=== PATIENT | female | born 1995 | race Hispanic/Latino ===

== ENCOUNTER 2023-06-17 16:55 | Emergency (ER) | payer BC ==
--- OUTSIDE RECORDS SUMMARY | 2023-06-17 17:02 | XMS REPORT | Continuity of Care Document ---
:1995 Author Organization [facility] t Address [address] [place] [address] [address] [place] [address] Care Team Providers Name Role Phone GREGORIO CRUZ MD Primary Care Physician COLBY SINGH Attending Clinician Unavailable GREGORIO CRUZ Attending Clinician Unavailable KRYSTLE SNELL Attending Clinician Unavailable Krystle Snell MD Attending Clinician Doctor Unassigned, [place] Attending Clinician Unavailable Nurse, Jeff [facility] Attending Clinician Unavailable Fontandarlene III, AUTOMATIC DISPENSER MECHANIC, R Attending Clinician Jillian Middleton MD Attending Clinician Jewell Marc NP Attending Clinician Lab, Ang - Db Attending Clinician Unavailable IAN REESE Attending Clinician Unavailable Ian Reese MD Attending Clinician Ultrasound, Ang-Mfm Attending Clinician Unavailable Harjit Bermudez MD Attending Clinician HARJIT BERMUDEZ Attending Clinician Unavailable Nyasia Salcedo APRN Attending Clinician Jonatan DUNBAR, Sunshine [employer]ncer Attending Clinician [phone] KRYSTLE SNELL Admitting Clinician Unavailable Krystle Snell MD Admitting Clinician Payers Payer Name Policy Type Policy Number Effective Date Expiration Date Harsha montelongo [facility] [id number] 2020 00:00:00 CHOICE/CHOICE PLUS [place] [place] [id number] 2021 00:00:00 OUT OF STATE Problems Condition Condition Condition Status Onset Resolution Last Treating Co mments Source Name Details Category Date Date Treatment Clinician Date Liveborn Liveborn Disease Active 2021-11 Unive rs infant, of infant, of 0-28 [place] , [place] d[place] born in born in [facility] by vaginal by vaginal delivery delivery Admitted Admitted Disease Active 2021-11 Unive rs to labor to labor 0-27 ity of and and 00:00: [place] delivery delivery 00 [facility] Encounter Encounter Disease Active 2021-11 Uni vers for for 0-27 [place] of induction [place] 00:[place] of labor of labor 00 [facility] Elevated Elevated Disease Active 2021-11 Unive rs BP without BP without 0-27 [place] of diagnosis diagnosis 00:[place] of of 00 Medical hypertensi hypertensi Br anch on on Gestationa Gestationa Disease Active 2021-11 U nivers l l 0-27 [place] of hypertens[place], third on, third 00 [facility] trimester trimester Bran ch High-risk High-risk Disease Active 2021-11 Uni vers 0-05 ity of in third in third 00:00: [place] trimester trimester 00 [facility] 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 6-09 ity of 00:00: [place] 00 Medical Branch Obesity in Obesity in Disease Active U nivers 3-17 ity of 00:00: [place] 00 Medical Branch Encounter Encounter Disease Active Uni vers for for 3-17 ity of supervisio supervisio [place] of n of 00 Medical normal normal Branch first first in first in first trimester trimester Daytime Daytime Disease Active [facility] somnolence somnolence 6-04 He alth 00:00: 00 Allergic Allergic Disease Active [place] rhinitis rhinitis 5-27 Health 00:00: 00 Allergies, Adverse Reactions, Alerts Allergy Allergy Status Severity Reaction(s) Onset Inactive Treating Comm ents Source Name Type Date Date Clinician NO KNOWN Drug Active Univers ALLERGIE Class ity of [facility] Social History Social Habit Start Date Stop Date Quantity Comments Source ASSERTION 2021-12-16 University of 00:00:00 [facility] History SDOH University o f Alcohol Frequency [facility] edical Branch History SDMT University o f Alcohol Std Drinks [facility] History [facility] University o f Alcohol Binge [place] Medic al [place] Gender identity Universit y of [facility] Sexual orientation Univer sity [facility] Exposure to 2022-09-11 2022-09-21 Not sure University SARS-CoV-2 (event) 00:00:00 09:25:00 [facility] Alcohol intake 2022-09-21 2022-09-21 Ex-drinker [facility] 00:00:00 00:00:00 (finding) [facility] Tobacco use and 2022-06-14 2022-06-14 Smokeless Universit y of exposure 00:00:00 00:00:00 tobacco non-user [facility] dical [place] History of Social 2022-01-21 2022-01-21 Univers ity of function 00:00:00 00:00:00 [facility] Alcohol Comment 2018-12-16 2018-12-16 socially Universit y of 00:00:00 00:00:00 [facility] Sex [birth year] At [birth year] Universit y of 00:00:00 00:00:00 [facility] Smoking Status Start Date Stop Date Source Never smoked tobacco [facility] Medications Ordered Filled Start Stop Current Ordering Indication Dosage Frequency Signature Comments Components Source Medication Medication Date Date Medication? Clinician (SIG) Name Name carri 2021-11 Yes [id number] .35mg Take 1 Univers ne 0.35 mg 2-06 tablet by ity of tablet 00:00: mouth in [place] 00 the Medical morning. Branch fatoumataro 2021-11 Yes [id number] .35mg Take 1 Univers ne 0.35 mg 2-06 tablet by ity of tablet 00:00: mouth in [place] 00 the Medical morning. Branch fatoumataro 2021-11 Yes [id number] .35mg Take 1 Univers ne 0.35 mg 2-06 tablet by ity of tablet 00:00: mouth in [place] 00 the Medical morning. Branch norethindro 2021-11 Yes [id number] .35mg Take 1 Univers ne 0.35 mg 2-06 tablet by ity of tablet 00:00: mouth in [place] 00 the Medical morning. Branch 2021-11- No Take by Unive rs vit,josselyn 0-29 10-29 mouth. ity of 74/iron/fol 13:23: 00:00 [place] ic 56 :00 Medical ( Branch VITAMIN 1+1 ORAL) 2021-11- No Take by Unive rs vit,josselyn 0-29 10-29 mouth. ity of 74/iron/fol 13:23: 00:00 [place] ic 56 :00 Medical ( Branch VITAMIN 1+1 ORAL) 2021-11 Yes [id number] 1{tbl} Take 1 U nivers vitamin 0-29 tablet by ity of w/FA tablet 00:00: [place] 00 the Medical morning. Branch docusate 2021-11 Yes [id number] 200mg Take 2 Un rigoberto 100 mg 0-29 capsules ity of capsule 00:00: by mouth [place] [id number] once daily Medical as needed Branch for Constipati on. ferrous 2021-11 Yes [id number] 325mg Take 1 Uni vers sulfate 325 0-29 tablet by ity of mg (65 mg 00:00: mouth in [facility]) 00 the Medical tablet morning Branch and 1 tablet in the evening. ibuprofen 2021-11 Yes [id number] 600mg Take 1 U nivers 600 mg 0-29 tablet by ity of tablet 00:00: mouth [place] 00 every 6 Medical (six) Branch hours as needed (Pain). Take with food or milk. 2021-11 Yes [id number] 1{tbl} Take 1 U nivers vitamin 0-29 tablet by ity of w/FA tablet 00:00: [place] 00 the Medical morning. Branch docusate 2021-11 Yes [id number] 200mg Take 2 Un rigoberto 100 mg 0-29 capsules ity of capsule 00:00: by mouth [place] [id number] once daily Medical as needed Branch for Constipati on. ferrous 2021-11 Yes [id number] 325mg Take 1 Uni vers sulfate 325 0-29 tablet by ity of mg (65 mg 00:00: [place] iron) 00 the Medical tablet morning Branch and 1 tablet in the evening. ibuprofen 2021-11 Yes [id number] 600mg Take 1 U nivers 600 mg 0-29 tablet by ity of tablet 00:00: mouth [place] 00 every 6 Medical (six) Branch hours as needed (Pain). Take with food or milk. 2021-11 Yes [id number] 1{tbl} Take 1 U nivers vitamin 0-29 tablet by ity of w/FA tablet 00:00: [place] 00 the Medical morning. Branch docusate 2021-11 Yes [id number] 200mg Take 2 Un rigoberto 100 mg 0-29 capsules ity of capsule 00:00: by mouth [place] 00 once daily Medical as needed Branch for Constipati on. ferrous 2021-11 Yes [id number] 325mg Take 1 Uni vers sulfate 325 0-29 tablet by ity of mg (65 mg 00:00: [place] iron[place] 00 the Medical tablet morning Branch and 1 tablet in the evening. ibuprofen 2021-11 Yes [id number] 600mg Take 1 U nivers 600 mg 0-29 tablet by ity of tablet 00:00: mouth [place] 00 every 6 Medical (six) Branch hours as needed (Pain). Take with food or milk. 2021-11 Yes [id number] 1{tbl} Take 1 U nivers vitamin 0-29 tablet by ity of w/FA tablet 00:00: [place] 00 the Medical morning. Branch ferrous 2021-11 Yes [id number] 325mg Take 1 Uni vers sulfate 325 0-29 tablet by ity of mg (65 mg 00:00: [place] iron[place] 00 the Medical tablet morning Branch and 1 tablet in the evening. 2021-11 Yes [id number] 1{tbl} Take 1 U nivers vitamin 0-29 tablet by ity of w/FA tablet 00:00: [place] 00 the Medical morning. Branch ferrous 2021-11 Yes [id number] 325mg Take 1 Uni vers sulfate 325 0-29 tablet by ity of mg (65 mg 00:00: [place] iron[place] 00 the Medical tablet morning Branch and 1 tablet in the evening. 2021-11 Yes [id number] 1{tbl} Take 1 U nivers vitamin 0-29 tablet by ity of w/FA tablet 00:00: mouth [place] 00 the Medical morning. Branch ferrous 2021-11 Yes [id number] 325mg Take 1 Uni vers sulfate 325 0-29 tablet by ity of mg (65 mg 00:00: [place] iron[place] 00 the Medical tablet morning Branch and 1 tablet in the evening. 2021-11 Yes [id number] 1{tbl} Take 1 U nivers vitamin 0-29 tablet by ity of w/FA tablet 00:00: mouth [place] 00 the Medical morning. Branch ferrous 2021-11 Yes [id number] 325mg Take 1 Uni vers sulfate 325 0-29 tablet by ity of mg (65 mg 00:00: [place] iron[place] 00 the Medical tablet morning Branch and 1 tablet in the evening. 2021-11 Yes [id number] 1{tbl} Take 1 U nivers vitamin 0-29 tablet by ity of w/FA tablet 00:00: mouth [place] 00 the Medical morning. Branch ferrous 2021-11 Yes [id number] 325mg Take 1 Uni vers sulfate 325 0-29 tablet by ity of mg (65 mg 00:00: [place] iron[place] 00 the Medical tablet morning Branch and 1 tablet in the evening. 2021-11 Yes [id number] 1{tbl} Take 1 U nivers vitamin 0-29 tablet by ity of w/FA tablet 00:00: mouth [place] 00 the Medical morning. Branch ferrous 2021-11 Yes [id number] 325mg Take 1 Uni vers sulfate 325 0-29 tablet by ity of mg (65 mg 00:00: [place] iron[place] 00 the Medical tablet morning Branch and 1 tablet in the evening. docusate 2021-11- No [id number] 200mg Take 2 U nivers 100 mg 0-29 11-15 capsules ity of capsule 00:00: 00:00 by mouth [place] 00 :00 once daily Medical as needed Branch for Constipati on. ibuprofen 2021-11- No [id number] 600mg Take 1 Univers 600 mg 0-29 11-15 tablet by ity of tablet 00:00: 00:00 mouth [place] 00 :00 every 6 Medical (six) Branch hours as needed (Pain). Take with food or milk. HYDROcodone 2021-11 Yes 1{tbl} 1 tablet, Univers -acetaminop 0-28 Oral, ity of hen (NORCO 23:06: Q6HPRN, [place] 5) 5-325 mg 27 Starting Medi josselyn tablet 1 on Tue Branch tablet 09/03/22 at 1806, Until Discontinu ed, Routine, Pain (scale 7-10) ibuprofen 2021-11 Yes 600mg 600 mg, Univ ers (IBU) 0-28 Oral, ity of tablet 600 23:06: Q6HPRN, [place] mg 27 Starting Medical on Tue Branch 09/03/22 at 1806, Until Discontinu ed, Routine, Pain (scale 4-6) acetaminoph 2021-11 Yes 650mg 650 mg, Un rigoberto en 0-28 Oral, ity of (TYLENOL) 23:06: Q6HPRN, [place] tablet 650 27 Starting Medic al mg on Tue Branch 09/03/22 at 1806, Until Discontinu ed, Routine, Pain (scale 1-3) diphenhydrA 2021-11 Yes 25mg 25 mg, Univ ers MINE 0-28 Oral, ity of (BENADRYL) 23:06: Q6HPRN, [place] tablet 25 27 Starting Medica l mg on Tue Branch 09/03/22 at 1806, Until Discontinu ed, Routine, Sleep, Itching ondansetron 2021-11 Yes 4mg 4 mg, Slow Univers (ZOFRAN 0-28 IV Push, ity of (PF)) 23:06: Q8HPRN, [place] injection 4 27 Starting Medi josselyn mg on Tue Branch 09/03/22 at 1806, Until Discontinu ed, Routine, Nausea and Vomiting (N/V) simethicone 2021-11 Yes 160mg 160 mg, Un rigoberto (GAS RELIEF 0-28 Oral, ity of (SIMETHICON 23:06: PC+HSPRN, [place] E)) 27 Starting Medical chewable on Tue Branch tablet 160 09/03/22 mg at 1806, Until Discontinu ed, Routine, Gas docusate 2021-11 Yes 200mg 200 mg, Unive rs (COLACE) 0-28 Oral, ity of capsule 200 23:06: QDAILYPRN, [place] mg 27 Starting Medical on Fri Branch 09/03/22 at 1806, Until Discontinu ed, Routine, Constipati on magnesium 2021-11 Yes 30mL 30 mL, Univer s hydroxide 0-28 Oral, ity of (MILK OF 23:06: QDAILYPRN, [place] MAGNESIA) 27 Starting Medica l 400 mg/5 mL on Fri Branch suspension 09/03/22 30 mL at 1806, Until Discontinu ed, Routine, Constipati on benzocaine- 2021-11 Yes Topical, Un rigoberto menthol 0-28 PRN, ity of (DERMOPLAST 23:06: [place] ) 20-0.5 % 26 on Fri Medical topical 09/03/22 Branch spray at 1806, Until Discontinu ed, Routine, Perineum discomfort lidocaine-e 2021-11 Yes Intraderma Univers pinephrine 0-28 l, ONCE ity of (XYLOCAINE 12:13: INTRA [place] W/EPINEPHRI 00 PROCEDURE, Me dical NE) 1.5 Starting Branch %-1:200,000 on Fri injection 09/03/22 at 0713, Until Discontinu ed, Routine, Intra-op lidocaine-e 2021-11 Yes Intraderma Univers pinephrine 0-28 l, ONCE ity of (XYLOCAINE 12:13: INTRA [place] W/EPINEPHRI 00 PROCEDURE, Me dical NE) 1.5 Starting Branch %-1:200,000 on Fri injection 09/03/22 at 0713, Until Discontinu ed, Routine, Intra-op lidocaine-e 2021-11 Yes Intraderma Univers pinephrine 0-28 l, ONCE ity of (XYLOCAINE 12:13: INTRA [place] W/EPINEPHRI 00 PROCEDURE, Me dical NE) 1.5 Starting Branch %-1:200,000 on Fri injection 09/03/22 at 0713, Until Discontinu ed, Routine, Intra-op lidocaine-e 2021-11 Yes Intraderma Univers pinephrine 0-28 l, ONCE ity of (XYLOCAINE 12:13: INTRA [place] W/EPINEPHRI 00 PROCEDURE, Me dical NE) 1.5 Starting Branch %-1:200,000 on Fri injection 09/03/22 at 0713, Until Discontinu ed, Routine, Intra-op lidocaine-e 2021-11 Yes Intraderma Univers pinephrine 0-28 l, ONCE ity of (XYLOCAINE 12:13: INTRA [place] W/EPINEPHRI 00 PROCEDURE, Me dical NE) 1.5 Starting Branch %-1:200,000 on Fri injection 09/03/22 at 0713, Until Discontinu ed, Routine, Intra-op lidocaine-e 2021-11- No Intraderma Univers pinephrine 0-28 10-29 l, ONCE ity o f (XYLOCAINE 12:13: 18:25 INTRA [place] W/EPINEPHRI 00 :04 PROCEDURE, Me dical NE) 1.5 Starting Branch %-1:200,000 on Fri injection 09/03/22 at 0713, Until 09/04/22 at 1325, Routine, Intra-op fentaNYL-ro 2021-11 Yes Epidural, U nivers pivacaine 2 0-28 ONCE INTRA it y of mcg/mL-0.1 11:51: PROCEDURE, [place] % (PF) in 00 Starting Medica l NS 200 mL on Fri Branch epidural 09/03/22 infusion at 0651, RTU Until Discontinu ed, Routine, Intra-op fentaNYL-ro 2021-11 Yes Epidural, U nivers pivacaine 2 0-28 ONCE INTRA it y of mcg/mL-0.1 11:51: PROCEDURE, [place] % (PF) in 00 Starting Medica l NS 200 mL on Fri Branch epidural 09/03/22 infusion at 0651, RTU Until Discontinu ed, Routine, Intra-op fentaNYL-ro 2021-11 Yes Epidural, U nivers pivacaine 2 0-28 ONCE INTRA it y of mcg/mL-0.1 11:51: PROCEDURE, [place] % (PF) in 00 Starting Medica l NS 200 mL on Fri Branch epidural 09/03/22 infusion at 0651, RTU Until Discontinu ed, Routine, Intra-op fentaNYL-ro 2021-11 Yes Epidural, U nivers pivacaine 2 0-28 ONCE INTRA it y of mcg/mL-0.1 11:51: PROCEDURE, [place] % (PF) in 00 Starting Medica l NS 200 mL on Fri Branch epidural 09/03/22 infusion at 0651, RTU Until Discontinu ed, Routine, Intra-op fentaNYL-ro 2021-11 Yes Epidural, U nivers pivacaine 2 0-28 ONCE INTRA it y of mcg/mL-0.1 11:51: PROCEDURE, [place] % (PF) in 00 Starting Medica l NS 200 mL on Fri Branch epidural 09/03/22 infusion at 0651, RTU Until Discontinu ed, Routine, Intra-op fentaNYL-ro 2021-11- No Epidural, Univers pivacaine 2 0-28 10-29 ONCE INTRA i ty of mcg/mL-0.1 11:51: 18:25 PROCEDURE, [place] % (PF) in 00 :04 Starting Medica l NS 200 mL on Fri Branch epidural 09/03/22 infusion at 0651, RTU Until 09/04/22 at 1325, Routine, Intra-op D5W-LR IV 2021-11- No 1000mL at 80 Univ ers infusion 0-27 10-28 mL/hr, IV ity o f 1,000 mL 20:30: 23:07 Infusion, [place] 00 :26 CONTINUOUS Medical , Starting Branch on [place] 09/02/22 at 1530, Until Tue09/03/22 at 1807, Routine oxytocin 2021-11- No 2mU/min at 2-40 Un rigoberto (PITOCIN) 0-27 10-28 mL/hr, IV ity of 30 units in 20:29: 23:07 Infusion, [place] NS 500 mL 46 :26 TITRATE, Medica l IV infusion Starting Bran ch on [place] 09/02/22 at 1529, Until Tue09/03/22 at 1807, Routine terbutaline 2021-11- No .25mg 0.25 mg, Univers (BRETHINE) 0- 10- Subcutaneo it y of injection 20:01: 23:07 us, Q15MIN [place] 0.25 mg 36 :26 PRN, 4 Medical doses, Branch Starting on [place] 09/02/22 at 1501, Until Tue09/03/22 at 1807, Routine, Tachysysto le, NFRHT misoprostol 2021-11- No 25ug 25 mcg, Un rigoberto (CYTOTEC) 0-27 10-27 Oral, ity of quarter-tab 20:00: 20:41 ONCE, 1 [place] 25 mcg 00 :00 dose, On Medic al [place] Branch 09/02/22 at 1515, Routine misoprostol 2021-11- No 25ug 25 mcg, Un rigoberto (CYTOTEC) 09-03 Vaginal, ity o f quarter-tab 19:58: 08:38 Q4HPRN, 4 [place] let 25 mcg 34 :00 doses, Medical Starting Branch on [place] 09/02/22 at 1458, Until Discontinu ed, Routine, Cervical rippening FENTanyl PF 2021-11- No 100ug 100 mcg, Univers (SUBLIMAZE 09-03 Slow IV ity o f (PF)) 19:28: 19:27 Push, [place] injection 07 :07 Q1HPRN, Medical 100 mcg Starting Branch on [place] 09/02/22 at 1428, Until Tue09/03/22 at 1427, Routine, Pain (scale 4-6), Pain (scale 7-10) lactated 2021-11- No 500mL at 999 Unive rs ringers IV 09-03 mL/hr, 500 it y of infusion 19:19: 23:07 mL, IV [place] 500 mL 52 :26 Infusion, Medical PRN - SEE Branch INSTRUCTIO NS, Starting on [place] 09/02/22 at 1419, Until Tue09/03/22 at 1807, Routine 2021-11 Yes Take by Univer s vit,josselyn 0-27 mouth. ity of 74/iron/fol 13:28: [place] [id number] Medical ( Branch VITAMIN 1+1 ORAL) 2021-11 Yes Take by Unive rs vit,josselyn 0-27 mouth. ity of 74/iron/fol 13:28: [place] [id number] Medical ( Branch VITAMIN 1+1 ORAL) 2021-11 Yes Take by Univer s vit,josselyn 0-27 mouth. ity of 74/iron/fol 13:28: [place] [id number] Medical ( Branch VITAMIN 1+1 ORAL) 2021-11 Yes Take by Univer s vit,josselyn 0-27 mouth. ity of 74/iron/fol 13:28: [place] [id number] Medical ( Branch VITAMIN 1+1 ORAL) 2021-11 Yes Take by Univer s vit,josselyn 0-27 mouth. ity of 74/iron/fol 13:28: [place] ic 01 Medical ( Branch VITAMIN 1+1 ORAL) 2021-11 Yes Take by Univer s vit,josselyn 0-27 mouth. ity of 74/iron/fol 13:28: [facility] 01 Medical ( Branch VITAMIN 1+1 ORAL) 0 Yes Take by Univer s vit,josselyn 3-17 mouth. ity of 74/iron/fol 09:29: [facility] 22 Medical ( Branch VITAMIN 1+1 ORAL) 0 Yes Take by Univer s vit,josselyn 3-17 mouth. ity of 74/iron/fol 09:29: [facility] 22 Medical ( Branch VITAMIN 1+1 ORAL) 0 Yes Take by Univer s vit,josselyn 3-17 mouth. ity of 74/iron/fol 09:29: [facility] 22 Medical ( Branch VITAMIN 1+1 ORAL) 0 Yes Take by Univer s vit,josselyn 3-17 mouth. ity of 74/iron/fol 09:29: [facility] 22 Medical ( Branch VITAMIN 1+1 ORAL) 0 Yes Take by Univer s vit,josselyn 3-17 mouth. ity of 74/iron/fol 09:29: [facility] 22 Medical ( Branch VITAMIN 1+1 ORAL) 0 Yes Take by Univer s vit,josselyn 3-17 mouth. ity of 74/iron/fol 09:29: [facility] 22 Medical ( Branch VITAMIN 1+1 ORAL) 0 Yes Take by Univer s vit,josselyn 3-17 mouth. ity of 74/iron/fol 09:29: [facility] 22 Medical ( Branch VITAMIN 1+1 ORAL) 0 Yes Take by Univer s vit,josselyn 3-17 mouth. ity of 74/iron/fol 09:29: [facility] 22 Medical ( Branch VITAMIN 1+1 ORAL) 0 Yes Take by Univer s vit,josselyn 3-17 mouth. ity of 74/iron/fol 09:29: [facility] 22 Medical ( Branch VITAMIN 1+1 ORAL) 0 Yes Take by Univer s vit,josselyn 3-17 mouth. ity of 74/iron/fol 09:29: [facility] 22 Medical ( Branch VITAMIN 1+1 ORAL) 0 Yes Take by Univer s vit,josselyn 3-17 mouth. ity of 74/iron/fol 09:29: [place] [id number] Medical ( Branch VITAMIN 1+1 ORAL) 0 Yes Take by Univer s vit,josselyn 3-17 mouth. ity of 74/iron/fol 09:29: [place] [id number] Medical ( Branch VITAMIN 1+1 ORAL) 0 Yes Take by Univer s vit,josselyn 3-17 mouth. ity of 74/iron/fol 09:29: [place] [address] Medical ( Branch VITAMIN 1+1 ORAL) 0 Yes Take by Univer s vit,josselyn 3-17 mouth. ity of 74/iron/fol 09:29: [place] [id number] Medical ( Branch VITAMIN 1+1 ORAL) Yes Take by Univer s vit,josselyn 3-17 mouth. ity of 74/iron/fol 09:29: [place] [address] Medical ( Branch VITAMIN 1+1 ORAL) Yes Take by Univer s vit,josselyn 3-17 mouth. ity of 74/iron/fol 09:29: [place] [address] Medical ( Branch VITAMIN 1+1 ORAL) Yes Take by Univer s vit,josselyn 3-17 mouth. ity of 74/iron/fol 09:29: [place] [address] Medical ( Branch VITAMIN 1+1 ORAL) Yes Take by Univer s vit,josselyn 3-17 mouth. ity of 74/iron/fol 09:29: [place] [address] Medical ( Branch VITAMIN 1+1 ORAL) Yes Take by Univer s vit,josselyn 3-17 mouth. ity of 74/iron/fol 09:29: [place] [id number] Medical ( Branch VITAMIN 1+1 ORAL) Yes Take by Univer s vit,josselyn 3-17 mouth. ity of 74/iron/fol 09:29: [place] [address] Medical ( Branch VITAMIN 1+1 ORAL) Yes Take by Unive rs vit,josselyn 3-17 mouth. ity of 74/iron/fol 09:29: [place] [id number] Medical ( Branch VITAMIN 1+1 ORAL) bromphenira 2020-11 Yes [id number] Take 1-2 [place] mine-pseudo 1-05 teaspoon Heal th ephedrine-D 00:00: every 4-6 M 30-2-10 00 hours as MG/5ML needed for syrup cough and drainage fluticasone 2020-11 Yes [id number] Inhale 1 [place] (Flonase) 1-05 spray each [facility] 50 MCG/ACT 00:00: nostril nasal spray 00 twice daily for 1 week, then once daily ongoing promethazin 2021- No [id number] 5mL Take 5 mL Univers e-dextromet 12-16-17 by mouth 4 i ty of horphan 00:00: 00:00 (four) [place] 6.25-15 00 :00 times Medical mg/5 mL daily as Branch syrup needed for Cough or Cold symptoms. No known No [facility] No known No [facility] No known No [facility] Immunizations Ordered Immunization Filled Immunization Date Status Commen ts Source Name Name Influenza Virus 2022-08-18 Completed Universit y of Vaccine [facility], 00:00:00 [facility] dical Preserv and ABX Free Bran ch 6 MO-64 YRS Influenza Virus 2022-08-18 Completed Universit y of Vaccine [facility] IM, 00:00:00 [place] Me dical Preserv and ABX Free Bran ch 6 MO-64 YRS Influenza Virus 2022-08-18 Completed Universit y of Vaccine [facility] IM, 00:00:00 [place] Me dical Preserv and ABX Free Bran ch 6 MO-64 YRS Influenza Virus 2022-08-18 Completed Universit y of Vaccine [facility] IM, 00:00:00 [place] Me dical Preserv and ABX Free Bran ch 6 MO-64 YRS Influenza Virus 2022-08-18 Completed Universit y of Vaccine [facility] IM, 00:00:00 [place] Me dical Preserv and ABX Free Bran ch 6 MO-64 YRS Influenza Virus 2022-08-18 Completed Universit y of Vaccine [facility] IM, 00:00:00 [place] Me dical Preserv and ABX Free Bran ch 6 MO-64 YRS Influenza Virus 2022-08-18 Completed Universit y of Vaccine [facility] IM, 00:00:00 [place] Me dical Preserv and ABX Free Bran ch 6 MO-64 YRS Influenza Virus 2022-08-18 Completed Universit y of Vaccine [facility] IM, 00:00:00 [place] Me dical Preserv and ABX Free Bran ch 6 MO-64 YRS Influenza Virus 2022-08-18 Completed Universit y of Vaccine [facility] IM, 00:00:00 [place] Me dical Preserv and ABX Free Bran ch 6 MO-64 YRS Influenza Virus 2022-08-18 Completed Universit y of Vaccine [facility] IM, 00:00:00 [place] Me dical Preserv and ABX Free Bran ch 6 MO-64 YRS Influenza Virus 2022-08-18 Completed Universit y of Vaccine [facility] IM, 00:00:00 [place] Me dical Preserv and ABX Free Bran ch 6 MO-64 YRS Influenza Virus 2022-08-18 Completed Universit y of Vaccine [facility] IM, 00:00:00 [place] Me dical Preserv and ABX Free Bran ch 6 MO-64 YRS Influenza Virus 2022-08-18 Completed Universit y of Vaccine Quad IM, 00:00:00 [place] Me dical Preserv and ABX Free Bran ch 6 MO-64 YRS Influenza Virus 2022-08-18 Completed Universit y of Vaccine Quad IM, 00:00:00 [place] Me dical Preserv and ABX Free Bran ch 6 MO-64 YRS Influenza Virus 2022-08-18 Completed Universit y of Vaccine Quad IM, 00:00:00 [place] Me dical Preserv and ABX Free Bran ch 6 MO-64 YRS Influenza Virus 2022-08-18 Completed Universit y of Vaccine Quad IM, 00:00:00 [place] Me dical Preserv and ABX Free Bran ch 6 MO-64 YRS Influenza Virus 2022-08-18 Completed Universit y of Vaccine Quad IM, 00:00:00 [place] Me dical Preserv and ABX Free Bran ch 6 MO-64 YRS Influenza Virus 2022-08-18 Completed Universit y of Vaccine Quad IM, 00:00:00 [place] Me dical Preserv and ABX Free Bran ch 6 MO-64 YRS Influenza Virus 2022-08-18 Completed [facility] IM, 00:00:00 [place] [facility] Preserv and ABX Free Bran ch 6 MO-64 YRS TDAP 2022-06-14 Completed [facility] 00:00:00 [facility] TDAP 2022-06-14 Completed [facility] 00:00:00 [facility] TDAP 2022-06-14 Completed [facility] 00:00:00 [facility] TDAP 2022-06-14 Completed [facility] 00:00:00 [facility] TDAP 2022-06-14 Completed [facility] 00:00:00 [facility] TDAP 2022-06-14 Completed [facility] 00:00:00 [facility] TD 2022-06-14 Completed [facility] 00:00:00 [facility] TDAP 2022-06-14 Completed [facility]00 [facility] 00:00:00 [facility] TD 2022-06-14 Completed [facility] 00:00:00 [facility] 2022-06-14 Completed [facility] 00:00:00 [facility] 2022-06-14 Completed [facility] 00:00:00 [facility] 2022-06-14 Completed [facility] 00[facility]00:00 [facility] 2022-06-14 Completed [facility] 00:00:00 [facility] 2022-06-14 Completed [facility] 00:00:00 [facility] 2022-06-14 Completed [facility] 00:00:00 [facility] 2022-06-14 Completed [facility] 00:00:00 [facility] 2022-06-14 Completed [facility] 00:00:00 [facility] 2022-06-14 Completed [facility] 00[facility]00:00 [facility] 2022-06-14 Completed [facility] 00:00:00 [facility] 2022-06-14 Completed [facility] 00:00:00 [facility] 2022-06-14 Completed [facility] 00:00:00 [facility] TDAP 2022-06-14 Completed [facility] 00:00:00 [facility] TDAP 2022-06-14 Completed [facility] 00[facility]00[facility]00 [facility] 00[facility]00 [facility] Com[facility] 00[facility]00[facility]00 [facility]14 Completed [facility] 00:00:00 [facility] Influenza Virus 2022-02-18 Completed [facility] IM, 00:00:00 [place] [facility] Preserv and ABX Free Bran ch 6 MO-64 YRS Influenza Virus 2022-02-18 Completed [facility] IM, 00:00:00 [place] [facility] Preserv and ABX Free Bran ch 6 MO-64 YRS Influenza Virus 2022-02-18 Completed [facility] IM, 00:00:00 [place] [facility] Preserv and ABX Free Bran ch 6 MO-64 YRS Influenza Virus 2022-02-18 Completed [facility], 00:00:00 [place] [facility] Preserv and ABX Free Bran ch 6 MO-64 YRS Influenza Virus 2022-02-18 Completed [facility], 00:00:00 [place] [facility] Preserv and ABX Free Bran ch 6 MO-64 YRS Influenza Virus 2022-02-18 Completed [facility], 00:00:00 [place] [facility] Preserv and ABX Free Bran ch 6 MO-64 YRS Influenza Virus 2022-02-18 Completed [facility], 00:00:00 [place] [facility] Preserv and ABX Free Bran ch 6 MO-64 YRS Influenza Virus 2022-02-18 Completed [facility], 00:00:00 [place] [facility] Preserv and ABX Free Bran ch 6 MO-64 YRS Influenza Virus 2022-02-18 Completed [facility], 00:00:00 [place] [facility] Preserv and ABX Free Bran ch 6 MO-64 YRS Influenza Virus 2022-02-18 Completed [facility], 00:00:00 [place] [facility] Preserv and ABX Free Bran ch 6 MO-64 YRS Influenza Virus 2022-02-18 Completed [facility], 00:00:00 [place] [facility] Preserv and ABX Free Bran ch 6 MO-64 YRS Influenza Virus 2022-02-18 Completed [facility], 00:00:00 [place] [facility] Preserv and ABX Free Bran ch 6 MO-64 YRS Influenza Virus 2022-02-18 Completed [facility], 00:00:00 [place] [facility] Preserv and ABX Free Bran ch 6 MO-64 YRS Influenza Virus 2022-02-18 Completed [facility], 00:00:00 [place] [facility] Preserv and ABX Free Bran ch 6 MO-64 YRS Influenza Virus 2022-02-18 Completed [facility], 00:00:00 [place] [facility] Preserv and ABX Free Bran ch 6 MO-64 YRS Influenza Virus 2022-02-18 Completed [facility], 00:00:00 [place] [facility] Preserv and ABX Free Bran ch 6 MO-64 YRS Influenza Virus 2022-02-18 Completed [facility], 00:00:00 [place] [facility] Preserv and ABX Free Bran ch 6 MO-64 YRS Influenza Virus 2022-02-18 Completed [facility], 00:00:00 [place] [facility] Preserv and ABX Free Bran ch 6 MO-64 YRS Influenza Virus 2022-02-18 Completed [facility], 00:00:00 [place] [facility] Preserv and ABX Free Bran ch 6 MO-64 YRS Influenza Virus 2022-02-18 Completed [facility], 00:00:00 [place] [facility] Preserv and ABX Free Bran ch 6 MO-64 YRS Influenza Virus 2022-02-18 Completed [facility], 00:00:00 [place] [facility] Preserv and ABX Free Bran ch 6 MO-64 YRS Influenza Virus 2022-02-18 Completed [facility], 00:00:00 [place] [facility] Preserv and ABX Free Bran ch 6 MO-64 YRS Influenza Virus 2022-02-18 Completed [facility], 00:00:00 [place] [facility] Preserv and ABX Free Bran ch 6 MO-64 YRS Influenza Virus 2022-02-18 Completed [facility], 00:00:00 [place] [facility] Preserv and ABX Free Bran ch 6 MO-64 YRS Influenza Virus 2022-02-18 Completed [facility], 00:00:00 [place] [facility] Preserv and ABX Free Bran ch 6 MO-64 YRS Influenza Virus 2022-02-18 Completed [facility], 00:00:00 [place] [facility] Preserv and ABX Free Bran ch 6 MO-64 YRS Influenza Virus 2022-02-18 Completed [facility] IM, 00:00:00 [place] [facility] Preserv and ABX Free Bran ch 6 MO-64 YRS Influenza Virus 2022-02-18 Completed [facility], 00:00:00 [place] [facility] Preserv and ABX Free Bran ch 6 MO-64 YRS Influenza Virus 2022-02-18 Completed [facility], 00:00:00 [place] [facility] Preserv and ABX Free Bran ch 6 MO-64 YRS Influenza Virus 2022-02-18 Completed [facility], 00:00:00 [place] [facility] Preserv and ABX Free Bran ch 6 MO-64 YRS Influenza Virus 2022-02-18 Completed [facility], 00:00:00 [place] [facility] Preserv and ABX Free Bran ch 6 MO-64 YRS Influenza Virus 2022-02-18 Completed [facility], 00:00:00 [place] [facility] Preserv and ABX Free Bran ch 6 MO-64 YRS Influenza Virus 2022-02-18 Completed [facility], 00:00:00 [place] [facility] Preserv and ABX Free Bran ch 6 MO-64 YRS Covid-19 Pfizer 2021-02-11 Completed [facility] SARS-CoV-2 00:00:00 Vaccination Covid-19 Pfizer 2021-02-11 Completed [facility] SARS-CoV-2 00:00:00 Vaccination SARS-COV-2 COVID-19 2021-02-11 Completed [facility] PFIZER VACCINE 00:00:00 [facility] SARS-COV-2 COVID-19 2021-02-11 Completed [facility] PFIZER VACCINE 00:00:00 [facility] SARS-COV-2 COVID-19 2021-02-11 Completed [facility] of PFIZER VACCINE 00:00:00 [facility] Covid-19 Pfizer 2021-02-11 Completed [facility] SARS-CoV-2 00:00:00 Vaccination SARS-COV-2 COVID-19 2021-02-11 Completed [facility] PFIZER VACCINE 00:00:00 [facility] SARS-COV-2 COVID-19 2021-02-11 Completed [facility] of PFIZER VACCINE 00:00:00 [facility] SARS-COV-2 COVID-19 2021-02-11 Completed [facility] of PFIZER VACCINE 00:00:00 [facility] SARS-COV-2 COVID-19 2021-02-11 Completed [facility] of PFIZER VACCINE 00:00:00 [facility] SARS-COV-2 COVID-19 2021-02-11 Completed [facility] PFIZER VACCINE 00:00:00 [facility] SARS-COV-2 COVID-19 2021-02-11 Completed [facility] of PFIZER VACCINE 00:00:00 [facility] SARS-COV-2 COVID-19 2021-02-11 Completed [facility] of PFIZER VACCINE 00:00:00 [facility] SARS-COV-2 COVID-19 2021-02-11 Completed [facility] of PFIZER VACCINE 00:00:00 [facility] SARS-COV-2 COVID-19 2021-02-11 Completed [facility] of PFIZER VACCINE 00:00:00 [facility] SARS-COV-2 COVID-19 2021-02-11 Completed [facility] of PFIZER VACCINE 00:00:00 [facility] Covid-19 Pfizer 2021-02-11 Completed [facility] SARS-CoV-2 00:00:00 Vaccination SARS-COV-2 COVID-19 2021-02-11 Completed [facility] PFIZER VACCINE 00:00:00 [facility] SARS-COV-2 COVID-19 2021-02-11 Completed [facility] of PFIZER VACCINE 00:00:00 [facility] SARS-COV-2 COVID-19 2021-02-11 Completed [facility] of PFIZER VACCINE 00:00:00 [facility] SARS-COV-2 COVID-19 2021-02-11 Completed [facility] of PFIZER VACCINE 00:00:00 [facility] SARS-COV-2 COVID-19 2021-02-11 Completed [facility] of PFIZER VACCINE 00:00:00 [facility] SARS-COV-2 COVID-19 2021-02-11 Completed [facility] of PFIZER VACCINE 00:00:00 [facility] SARS-COV-2 COVID-19 2021-01-14 Completed [facility] PFIZER VACCINE 00:00:00 [facility] SARS-COV-2 COVID-19 2021-01-14 Completed [facility] PFIZER VACCINE 00:00:00 [facility] SARS-COV-2 COVID-19 2021-01-14 Completed [facility] PFIZER VACCINE 00:00:00 [facility] SARS-COV-2 COVID-19 2021-01-14 Completed [facility] PFIZER VACCINE 00:00:00 [facility] Covid-19 Pfizer 2021-01-14 Completed [facility] SARS-CoV-2 00:00:00 Vaccination SARS-COV-2 COVID-19 2021-01-14 Completed [facility] PFIZER VACCINE 00:00:00 [facility] SARS-COV-2 COVID-19 2021-01-14 Completed [facility] PFIZER VACCINE 00:00:00 [facility] SARS-COV-2 COVID-19 2021-01-14 Completed [facility] of PFIZER VACCINE 00:00:00 [facility] SARS-COV-2 COVID-19 2021-01-14 Completed [facility] of PFIZER VACCINE 00:00:00 [facility] SARS-COV-2 COVID-19 2021-01-14 Completed [facility] PFIZER VACCINE 00:00:00 [facility] SARS-COV-2 COVID-19 2021-01-14 Completed [facility] of PFIZER VACCINE 00:00:00 [facility] SARS-COV-2 COVID-19 2021-01-14 Completed [facility] of PFIZER VACCINE 00:00:00 [facility] SARS-COV-2 COVID-19 2021-01-14 Completed [facility] of PFIZER VACCINE 00:00:00 [facility] SARS-COV-2 COVID-19 2021-01-14 Completed [facility] of PFIZER VACCINE 00:00:00 [facility] SARS-COV-2 COVID-19 2021-01-14 Completed [facility] PFIZER VACCINE 00:00:00 [facility] Covid-19 Pfizer 2021-01-14 Completed [facility] SARS-CoV-2 00:00:00 Vaccination SARS-COV-2 COVID-19 2021-01-14 Completed [facility] of PFIZER VACCINE 00:00:00 [facility] SARS-COV-2 COVID-19 2021-01-14 Completed [facility] of PFIZER VACCINE 00:00:00 [facility] SARS-COV-2 COVID-19 2021-01-14 Completed [facility] of PFIZER VACCINE 00:00:00 [facility] SARS-COV-2 COVID-19 2021-01-14 Completed [facility] of PFIZER VACCINE 00:00:00 [facility] SARS-COV-2 COVID-19 2021-01-14 Completed [facility] of PFIZER VACCINE 00:00:00 [facility] Covid-19 Pfizer 2021-01-14 Completed [facility] SARS-CoV-2 00:00:00 Vaccination Covid-19 Pfizer 2021-01-14 Completed [facility] SARS-CoV-2 00:00:00 Vaccination Meningococcal 2014-04-19 Completed [facility] Polysaccharide 00:00:00 [place] [facility] (Groups A, C, Y And Branc h W-135 TT) conjugate vaccine Meningococcal 2014-04-19 Completed [facility] Polysaccharide 00:00:00 [place] [facility] (Groups A, C, Y And Branc h W-135 TT) conjugate vaccine Meningococcal 2014-04-19 Completed [facility] Polysaccharide 00:00:00 [place] [facility] (Groups A, C, Y And Branc h W-135 TT) conjugate vaccine Meningococcal 2014-04-19 Completed [facility] Polysaccharide 00:00:00 [place] [facility] (Groups A, C, Y And Branc h W-135 TT) conjugate vaccine Meningococcal 2014-04-19 Completed [facility] Polysaccharide 00:00:00 [place] [facility] (Groups A, C, Y And Branc h W-135 TT) conjugate vaccine Meningococcal 2014-04-19 Completed [facility] Polysaccharide 00:00:00 [place] [facility] (Groups A, C, Y And Branc h W-135 TT) conjugate vaccine Meningococcal 2014-04-19 Completed [facility] Polysaccharide 00:00:00 [place] [facility] (Groups A, C, Y And Branc h W-135 TT) conjugate vaccine Meningococcal 2014-04-19 Completed [facility] Polysaccharide 00:00:00 [place] [facility] (Groups A, C, Y And Branc h W-135 TT) conjugate vaccine Meningococcal 2014-04-19 Completed [facility] Polysaccharide 00:00:00 [place] [facility] (Groups A, C, Y And Branc h W-135 TT) conjugate vaccine Meningococcal 2014-04-19 Completed [facility] Polysaccharide 00:00:00 [place] [facility] (Groups A, C, Y And Branc h W-135 TT) conjugate vaccine Meningococcal 2014-04-19 Completed [facility] Polysaccharide 00:00:00 [place] [facility] (Groups A, C, Y And Branc h W-135 TT) conjugate vaccine Meningococcal 2014-04-19 Completed [facility] Polysaccharide 00:00:00 [place] [facility] (Groups A, C, Y And Branc h W-135 TT) conjugate vaccine Meningococcal 2014-04-19 Completed [facility] Polysaccharide 00:00:00 [place] [facility] (Groups A, C, Y And Branc h W-135 TT) conjugate vaccine Meningococcal 2014-04-19 Completed [facility] Polysaccharide 00:00:00 [place] [facility] (Groups A, C, Y And Branc h W-135 TT) conjugate vaccine Meningococcal 2014-04-19 Completed [facility] Polysaccharide 00:00:00 [place] [facility] (Groups A, C, Y And Branc h W-135 TT) conjugate vaccine Meningococcal 2014-04-19 Completed [facility] Polysaccharide 00:00:00 [place] [facility] (Groups A, C, Y And Branc h W-135 TT) conjugate vaccine Meningococcal 2014-04-19 Completed [facility] Polysaccharide 00:00:00 [place] [facility] (Groups A, C, Y And Branc h W-135 TT) conjugate vaccine Meningococcal 2014-04-19 Completed [facility] Polysaccharide 00:00:00 [place] [facility] (Groups A, C, Y And Branc h W-135 TT) conjugate vaccine Meningococcal 2014-04-19 Completed [facility] Polysaccharide 00:00:00 [place] [facility] (Groups A, C, Y And Branc h W-135 TT) conjugate vaccine Meningococcal 2014-04-19 Completed [facility] Polysaccharide 00:00:00 [place] [facility] (Groups A, C, Y And Branc h W-135 TT) conjugate vaccine Meningococcal 2014-04-19 Completed [facility] Polysaccharide 00:00:00 [place] [facility] (Groups A, C, Y And Branc h W-135 TT) conjugate vaccine Meningococcal 2014-04-19 Completed [facility] Polysaccharide 00:00:00 [place] [facility] (Groups A, C, Y And Branc h W-135 TT) conjugate vaccine Meningococcal 2014-04-19 Completed [facility] Polysaccharide 00:00:00 [place] [facility] (Groups A, C, Y And Branc h W-135 TT) conjugate vaccine Meningococcal 2014-04-19 Completed [facility] Polysaccharide 00:00:00 [place] [facility] (Groups A, C, Y And Branc h W-135 TT) conjugate vaccine Meningococcal 2014-04-19 Completed [facility] Polysaccharide 00:00:00 [place] [facility] (Groups A, C, Y And Branc h W-135 TT) conjugate vaccine Meningococcal MCV4, 2014-04-19 [facility]:00 Meningococcal 2014-04-19 Completed [facility] Polysaccharide 00:00:00 [place] [facility] (Groups A, C, Y And Branc h W-135 TT) conjugate vaccine Meningococcal 2014-04-19 Completed [facility] Polysaccharide 00:00:00 [place] [facility] (Groups A, C, Y And Branc h W-135 TT) conjugate vaccine Meningococcal 2014-04-19 Completed [facility] Polysaccharide 00:00:00 [place] [facility] (Groups A, C, Y And Branc h W-135 TT) conjugate vaccine Meningococcal 2014-04-19 Completed [facility] Polysaccharide 00:00:00 [place] [facility] (Groups A, C, Y And Branc h W-135 TT) conjugate vaccine Meningococcal 2014-04-19 Completed [facility] Polysaccharide 00:00:00 [place] [facility] (Groups A, C, Y And Branc h W-135 TT) conjugate vaccine Meningococcal 2014-04-19 Completed [facility] Polysaccharide 00:00:00 [place] [facility] (Groups A, C, Y And Branc h W-135 TT) conjugate vaccine Meningococcal 2014-04-19 Completed [facility] Polysaccharide 00:00:00 [place] [facility] (Groups A, C, Y And Branc h W-135 TT) conjugate vaccine Meningococcal 2014-04-19 Completed [facility] Polysaccharide 00:00:00 [place] [facility] (Groups A, C, Y And Branc h W-135 TT) conjugate vaccine Meningococcal MCV4, 2014-04-19 [facility]pleted [facility] 00:00:00 Meningococcal MCV4, 2014-04-19 [facility]pleted [facility] 00:00:00 Meningococcal MCV4, 2014-04-19 [facility]pleted [facility] 00:[facility]:00 Influenza Virus 2012-08-25 Completed [facility] Vaccine 00:00:00 [facility] Influenza Virus 2012-08-25 Completed [facility] Vaccine 00:00:00 [facility] Influenza Virus 2012-08-25 Completed [facility] Vaccine 00:00:00 [facility] Influenza Virus 2012-08-25 Completed [facility] Vaccine 00:00:00 [facility] Influenza Virus 2012-08-25 Completed [facility] Vaccine 00:00:00 [facility] Influenza Virus 2012-08-25 Completed [facility] Vaccine 00:00:00 [facility] Influenza Virus 2012-08-25 Completed [facility] Vaccine 00:00:00 [facility] Influenza Virus 2012-08-25 Completed [facility] Vaccine 00:00:00 [facility] Influenza Virus 2012-08-25 Completed [facility] Vaccine 00:00:00 [facility] Influenza Virus 2012-08-25 Completed [facility] Vaccine 00:00:00 [facility] Influenza Virus 2012-08-25 Completed [facility] Vaccine 00:00:00 [facility] Influenza Virus 2012-08-25 Completed [facility] Vaccine 00:00:00 [facility] Influenza Virus 2012-08-25 Completed [facility] Vaccine 00:00:00 [facility] Influenza Virus 2012-08-25 Completed [facility] Vaccine 00:00:00 [facility] Influenza Virus 2012-08-25 Completed [facility] Vaccine 00:00:00 [facility] Influenza Virus 2012-08-25 Completed [facility] Vaccine 00:00:00 [facility] Influenza Virus 2012-08-25 Completed [facility] Vaccine 00:00:00 [facility] Influenza Virus 2012-08-25 Completed [facility] Vaccine 00:00:00 [facility] Influenza Virus 2012-08-25 Completed [facility] Vaccine 00:00:00 [facility] Influenza Virus 2012-08-25 Completed [facility] Vaccine 00:00:00 [facility] Influenza Virus 2012-08-25 Completed [facility] Vaccine 00:00:00 [facility] Influenza Virus 2012-08-25 Completed [facility] Vaccine 00:00:00 [facility] Influenza Virus 2012-08-25 Completed [facility] Vaccine 00:00:00 [facility] Influenza Virus 2012-08-25 Completed [facility] Vaccine 00:00:00 [facility] Influenza Virus 2012-08-25 Completed [facility] Vaccine 00:00:00 [facility] Influenza Virus 2012-08-25 Completed [facility] Vaccine 00:00:00 [facility] Influenza Virus 2012-08-25 Completed [facility] Vaccine 00:00:00 [facility] Influenza Virus 2012-08-25 Completed [facility] Vaccine 00:00:00 [facility] Influenza Virus 2012-08-25 Completed [facility] Vaccine 00:00:00 [facility] Influenza Virus 2012-08-25 Completed [facility] Vaccine 00:00:00 [facility] Influenza Virus 2012-08-25 Completed [facility] Vaccine 00:00:00 [facility] Influenza Virus 2012-08-25 Completed [facility] Vaccine 00:00:00 [facility] Influenza, 2012-08-25 [address] [facility] Unspecified 00:00:00 Influenza Virus 2012-08-25 Completed [facility] Vaccine 00:00:00 [facility] Influenza, 2012-08-25 Completed [facility] Unspecified 00:00:00 Influenza, 2012-08-25 Completed [facility] Unspecified 00:00:00 Influenza, 2012-08-25 Completed [facility] Unspecified 00:00:00 HPV 2010-06-30 Completed [facility] 00:00:00 [facility] HPV 2010-06-30 Completed [facility] 00:00:00 [facility] HPV 2010-06-30 Completed [facility] 00:00:00 [facility] HPV 2010-06-30 Completed [facility] 00:00:00 [facility] HPV 2010-06-30 Completed [facility] 00:00:00 [facility] HPV 2010-06-30 Completed [facility] 00:00:00 [facility] HPV 2010-06-30 Completed [facility] 00:00:00 [facility] HPV 2010-06-30 Completed [facility] 00:00:00 [facility] HPV 2010-06-30 Completed [facility] 00:00:00 [facility] HPV 2010-06-30 Completed [facility] 00:00:00 [facility] HPV 2010-06-30 Completed [facility] 00:00:00 [facility] HPV 2010-06-30 Completed [facility] 00:00:00 [facility] HPV 2010-06-30 Completed [facility] 00:00:00 [facility] HPV 2010-06-30 Completed [facility] 00:00:00 [facility] HPV 2010-06-30 Completed [facility] 00:00:00 [facility] HPV 2010-06-30 Completed [facility] 00:00:00 [facility] HPV 2010-06-30 Completed [facility] 00:00:00 [facility] HPV 2010-06-30 Completed [facility] 00:00:00 [facility] HPV 2010-06-30 Completed [facility] 00:00:00 [facility] HPV 2010-06-30 Completed [facility] 00:00:00 [facility] HPV 2010-06-30 Completed [facility] 00:00:00 [facility] HPV 2010-06-30 Completed [facility] 00:00:00 [facility] HPV 2010-06-30 Completed [facility] 00:00:00 [facility] HPV 2010-06-30 Completed [facility] 00:00:00 [facility] HPV 2010-06-30 Completed [facility] 00:00:00 [facility] HPV 2010-06-30 Completed [facility] 00:00:00 [facility] HPV 2010-06-30 Completed [facility] 00:00:00 [facility] HPV 2010-06-30 Completed [facility] 00:00:00 [facility] HPV 2010-06-30 Completed [facility] 00:00:00 [facility] HPV 2010-06-30 Completed [facility] 00:00:00 [facility] HPV 2010-06-30 Completed [facility] 00:00:00 [facility] HPV 2010-06-30 Completed [facility] 00:00:00 [facility] HPV 2010-06-30 Completed [facility] 00:00:00 [facility] HPV, Quadrivalent 2010-06-[facility], Quadrivalent 2010-06-30 [facility] HPV, Quadrivalent 2010-06-30 [facility] HPV, Quadrivalent 2010-06-30 [facility] HEPATITIS A 2009-07-01 Completed [facility] 00:00:00 [facility] HEPATITIS A 2009-07-01 Completed [facility] 00:00:00 [facility] HEPATITIS A 2009-07-01 Completed [facility] 00:00:00 [facility] HEPATITIS A 2009-07-01 Completed [facility] 00:00:00 [facility] HEPATITIS A 2009-07-01 Completed [facility] 00:00:00 [facility] HEPATITIS A 2009-07-01 Completed [facility] 00:00:00 [facility] HEPATITIS A 2009-07-01 Completed [facility] 00:00:00 [facility] HEPATITIS A 2009-07-01 Completed [facility] 00:00:00 [facility] HEPATITIS A 2009-07-01 Completed [facility] 00:00:00 [facility] HEPATITIS A 2009-07-01 Completed [facility] 00:00:00 [facility] HEPATITIS A 2009-07-01 Completed [facility] 00:00:00 [facility] HEPATITIS A 2009-07-01 Completed [facility] 00:00:00 [facility] HEPATITIS A 2009-07-01 Completed [facility] 00:00:00 [facility] HEPATITIS A 2009-07-01 Completed [facility] 00:00:00 [facility] HEPATITIS A 2009-07-01 Completed [facility] 00:00:00 [facility] HEPATITIS A 2009-07-01 Completed [facility] 00:00:00 [facility] HEPATITIS A 2009-07-01 Completed [facility] 00:00:00 [facility] HEPATITIS A 2009-07-01 Completed [facility] 00:00:00 [facility] HEPATITIS A 2009-07-01 Completed [facility] 00:00:00 [facility] HEPATITIS A 2009-07-01 Completed [facility] 00:00:00 [facility] HEPATITIS A 2009-07-01 Completed [facility] 00:00:00 [facility] HEPATITIS A 2009-07-01 Completed [facility] 00:00:00 [facility] HEPATITIS A 2009-07-01 Completed [facility] 00:00:00 [facility] HEPATITIS A 2009-07-01 Completed [facility] 00:00:00 [facility] HEPATITIS A 2009-07-01 Completed [facility] 00:00:00 [facility] HEPATITIS A 2009-07-01 Completed [facility] 00:00:00 [facility] HEPATITIS A 2009-07-01 Completed [facility] 00:00:00 [facility] HEPATITIS A 2009-07-01 Completed [facility] 00:00:00 [facility] HEPATITIS A 2009-07-01 Completed [facility] 00:00:00 [facility] HEPATITIS A 2009-07-01 Completed [facility] 00:00:00 [facility] HEPATITIS A 2009-07-01 Completed [facility] 00:00:00 [facility] HEPATITIS A 2009-07-01 Completed [facility] 00:00:00 [facility] HEPATITIS A 2009-07-01 Completed [facility] 00:00:00 [facility] Hep A, Unspecified 2009-07-[facility] Un[facility] 2009-07-01 [facility] Hep A, Unspecified 2009-07-01 [facility] Hep A, Unspecified 2009-07-01 [facility]00 Tdap 2008-04-08 [facility] 00:00:00 TDAP 2008-04-08 Completed [facility] 00:00:00 [facility] HEPATITIS A 2008-04-08 Completed [facility] 00:00:00 [facility] TDAP 2008-04-08 Completed [facility] 00:00:00 [facility] HEPATITIS A 2008-04-08 Completed [facility] 00:00:00 [facility] TDAP 2008-04-08 Completed [facility] 00:00:00 [facility] HEPATITIS A 2008-04-08 Completed [facility] 00:00:00 [facility] TDAP 2008-04-08 Completed [facility] 00:00:00 [facility] HEPATITIS A 2008-04-08 Completed [facility] 00:00:00 [facility] TDAP 2008-04-08 Completed [facility] 00:00:00 [facility] HEPATITIS A 2008-04-08 Completed [facility] 00:00:00 [facility] TDAP 2008-04-08 Completed [facility] 00:00:00 [facility] HEPATITIS A 2008-04-08 Completed [facility] 00:00:00 [facility] TDAP 2008-04-08 Completed [facility] 00:00:00 [facility] HEPATITIS A 2008-04-08 Completed [facility] 00:00:00 [facility] TDAP 2008-04-08 Completed [facility] 00:00:00 [facility] HEPATITIS A 2008-04-08 Completed [facility] 00:00:00 [facility] TDAP 2008-04-08 Completed [facility] 00:00:00 [facility] HEPATITIS A 2008-04-08 Completed [facility] 00:00:00 [facility] TDAP 2008-04-08 Completed [facility] 00:00:00 [facility] HEPATITIS A 2008-04-08 Completed [facility] 00:00:00 [facility] TDAP 2008-04-08 Completed [facility] 00:00:00 [facility] HEPATITIS A 2008-04-08 Completed [facility] 00:00:00 [facility] TDAP 2008-04-08 Completed [facility] 00:00:00 [facility] HEPATITIS A 2008-04-08 Completed [facility] 00:00:00 [facility] TDAP 2008-04-08 Completed [facility] 00:00:00 [facility] HEPATITIS A 2008-04-08 Completed [facility] 00:00:00 [facility] TDAP 2008-04-08 Completed [facility] 00:00:00 [facility] HEPATITIS A 2008-04-08 Completed [facility] 00:00:00 [facility] TDAP 2008-04-08 Completed [facility] 00:00:00 [facility] HEPATITIS A 2008-04-08 Completed [facility] 00:00:00 [facility] TDAP 2008-04-08 Completed [facility] 00:00:00 [facility] HEPATITIS A 2008-04-08 Completed [facility] 00:00:00 [facility] TDAP 2008-04-08 Completed [facility] 00:00:00 [facility] HEPATITIS A 2008-04-08 Completed [facility] 00:00:00 [facility] TDAP 2008-04-08 Completed [facility] 00:00:00 [facility] HEPATITIS A 2008-04-08 Completed [facility] 00:00:00 [facility] TDAP 2008-04-08 Completed [facility] 00:00:00 [facility] HEPATITIS A 2008-04-08 Completed [facility] 00:00:00 [facility] TDAP 2008-04-08 Completed [facility] 00:00:00 [facility] HEPATITIS A 2008-04-08 Completed [facility] 00:00:00 [facility] TDAP 2008-04-08 Completed [facility] 00:00:00 [facility] HEPATITIS A 2008-04-08 Completed [facility] 00:00:00 [facility] TDAP 2008-04-08 Completed [facility] 00:00:00 [facility] HEPATITIS A 2008-04-08 Completed [facility] 00:00:00 [facility] TDAP 2008-04-08 Completed [facility] 00:00:00 [facility] TDAP 2008-04-08 Completed [facility] 00:00:00 [facility] HEPATITIS A 2008-04-08 Completed [facility] 00:00:00 [facility] HEPATITIS A 2008-04-08 Completed [facility] 00:00:00 [facility] TDAP 2008-04-08 Completed [facility] 00:00:00 [facility] HEPATITIS A 2008-04-08 Completed [facility] 00:00:00 [facility] TDAP 2008-04-08 Completed [facility] 00:00:00 [facility] HEPATITIS A 2008-04-08 Completed [facility] 00:00:00 [facility] TDAP 2008-04-08 Completed [facility] 00:00:00 [facility] Hep A, Unspecified 2008-04-08 [facility] HEPATITIS A 2008-04-08 Completed [facility] 00:00:00 [facility] TDAP 2008-04-08 Completed [facility] 00:00:00 [facility] HEPATITIS A 2008-04-08 Completed [facility] 00:[facility]:00 [facility] HEPATITIS A 2008-04-08 Completed [facility] 00[facility]00:00 [facility] TDAP 2008-04-08 Completed [facility] 00:00:00 [facility] HEPATITIS A 2008-04-08 Completed [facility] 00[facility]00[facility]00 [facility] 00:00:00 [facility] HEPATITIS A 2008-04-08 Completed [facility] 00[facility]00[facility]00 [facility] 00:[facility]:00 HEPATITIS A 2008-04-08 Completed [facility] 00[facility]00[facility]00 [facility] 00:00:00 [facility] HEPATITIS A 2008-04-08 Completed [facility] 00:00:00 [facility] Hep A, Unspecified 2008-04-08 [facility] Tdap 2008-04-08 [facility] 00:00:00 Hep A, Unspecified 2008-04-08 [facility]:00 Tdap 2008-04-08 [facility]pleted [facility] 00:00:00 Hep A, Unspecified 2008-04-08 [facility]:00 Varicella 1998-11-07 Completed [facility] 00:00:00 Varicella 1998-11-07 Completed [facility] 00:00:00 Varicella 1998-11-07 Completed [facility] 00:00:00 Varicella 1998-11-07 Completed [facility] 00:00:00 Varicella 1998-11-07 Completed [facility] (varivax[facility] 00:00:[facility] Varicella 1998-11-07 Completed [facility] (varivax[facility] 00:00:00 [facility] Varicella 1998-11-07 Completed [facility] (varivax)(chicken 00:00:00 [facility] Varicella 1998-11-07 Completed [facility] (varivax)(chicken 00:00:00 [facility] Varicella 1998-11-07 Completed [facility] (varivax)(chicken 00:00:00 [facility] Varicella 1998-11-07 Completed [facility] (varivax)(chicken 00:00:00 [facility] Varicella 1998-11-07 Completed [facility] (varivax)(chicken 00:00:00 [facility] Varicella 1998-11-07 Completed [facility] (varivax)(chicken 00:00:00 [facility] Varicella 1998-11-07 Completed [facility] (varivax)(chicken 00:00:00 [facility] Varicella 1998-11-07 Completed [facility] (varivax)(chicken 00:00:00 [facility] Varicella 1998-11-07 Completed [facility] (varivax)(chicken 00:00:00 [facility] Varicella 1998-11-07 Completed [facility] (varivax)(chicken 00:00:00 [facility] Varicella 1998-11-07 Completed [facility] (varivax)(chicken 00:00:00 [facility] Varicella 1998-11-07 Completed [facility] (varivax)(chicken 00:00:00 [facility] Varicella 1998-11-07 Completed [facility] (varivax)(chicken 00:00:00 [facility] Varicella 1998-11-07 Completed [facility] (varivax)(chicken 00:00:00 [facility] Varicella 1998-11-07 Completed [facility] (varivax)(chicken 00:00:00 [facility] Varicella 1998-11-07 Completed [facility] (varivax)(chicken 00:00:00 [facility] Varicella 1998-11-07 Completed [facility] (varivax)(chicken 00:00:00 [facility] Varicella 1998-11-07 Completed [facility] (varivax)(chicken 00:00:00 [facility] Varicella 1998-11-07 Completed [facility] (varivax)(chicken 00:00:00 [facility] Varicella 1998-11-07 Completed [facility] (varivax)(chicken 00:00:00 [facility] Varicella 1998-11-07 Completed [facility] (varivax)(chicken 00:00:00 [facility] Varicella 1998-11-07 Completed [facility] (varivax)(chicken 00:00:00 [facility] Varicella 1998-11-07 Completed [facility] (varivax)(chicken 00:00:00 [facility] Varicella 1998-11-07 Completed [facility] (varivax)(chicken 00:00:00 [facility] Varicella 1998-11-07 Completed [facility] (varivax)(chicken 00:00:00 [facility] Varicella 1998-11-07 Completed [facility] (varivax)(chicken 00:00:00 [facility] Varicella 1998-11-07 Completed [facility] (varivax)(chicken 00:00:00 [facility] Varicella 1998-11-07 Completed [facility] (varivax)(chicken 00:00:00 [facility] Varicella 1998-11-07 Completed [facility] (varivax)(chicken 00:00:00 [facility] Varicella 1998-11-07 Completed [facility] (varivax)(chicken 00:00:00 [facility] Varicella 1998-11-07 Completed [facility] (varivax)(chicken 00:00:00 [facility] DTAP 1994 Completed [facility] 00:00:00 [facility] DTAP 1994 Completed [facility] 00:00:00 [facility] DTAP 1994 Completed [facility] 00:00:00 [facility] DTAP 1994 Completed [facility] 00:00:00 [facility] DTAP 1994 Completed [facility] 00:00:00 [facility] DTAP 1994 Completed [facility] 00:00:00 [facility] DTAP 1994 Completed [facility] 00:00:00 [facility] DTAP 1994 Completed [facility] 00:00:00 [facility] DTAP 1994 Completed [facility] 00:00:00 [facility] DTaP 1994 [facility] 00:00: DTaP 1994 [facility] 00:00: DTaP 1994 [facility] 00:00: DTaP 1994 [facility] 00:00: DTAP 1994 Completed [facility] :00:00 [facility] DTAP 1994 Completed [facility] 00:00:00 [facility] DTAP 1994 Completed [facility] 00:00:00 [facility] DTAP 1994 Completed [facility] 00:00:00 [facility] DTAP 1994 Completed [facility] 00:00:00 [facility] DTAP 1994 Completed [facility] 00:00:00 [facility] DTAP 1994 Completed [facility] 00:00:00 [facility] DTAP 1994 Completed [facility] 00:00:00 [facility] DTAP 1994 Completed [facility] 00:00:00 [facility] DTAP 1994 Completed [facility] 00:00:00 [facility] DTAP 1994 Completed [facility] 00[facility]00:00 [facility] DTAP 1994 Completed [facility] 00:00:00 [facility] DTAP 1994 Completed [facility] 00[facility]00:00 [facility] DTAP 1994 Completed [facility] 00:00:00 [facility] DTAP 1994 Completed [facility] 00:00:00 [facility] DTAP 1994 Completed [facility] 00:00:00 [facility] DTAP 1994 Completed [facility] 00:00:00 [facility] DTAP 1994 Completed [facility] 00:00:00 [facility] DTAP 1994 Completed [facility] 00:00:00 [facility] DTAP 1994 Completed [facility] 00:00:00 [facility] DTAP 1994 Completed [facility] 00:00:00 [facility] DTAP 1994 Completed [facility] 00:00:00 [facility] DTAP 1994 Completed [facility] 00:00:00 [facility] DTAP 1994 Completed [facility] 00:00:00 [facility] HEP B, Adult Dosage 1994 Completed [facility] 00:00:00 [facility] HEP B, Adult Dosage 1994 Completed [facility] 00:00:00 [facility] HEP B, Adult Dosage 1994 Completed [facility] 00:00:00 [facility] HEP B, Adult Dosage 1994 Completed [facility] 00:00:00 [facility] HEP B, Adult Dosage 1994 Completed [facility] 00:00:00 [facility] HEP B, Adult Dosage 1994 Completed [facility] 00:00:00 [facility] HEP B, Adult Dosage 1994 Completed [facility] 00:00:00 [facility] HEP B, Adult Dosage 1994 Completed [facility] of 00:00:00 [facility] HEP B, Adult Dosage 1994 Completed [facility] of 00:00:00 [facility] HEP B, Adult Dosage 1994 Completed [facility] 00:00:00 [facility] HEP B, Adult Dosage 1994 Completed [facility] 00:00:00 [facility] HEP B, Adult Dosage 1994 Completed [facility] 00:00:00 [facility] HEP B, Adult Dosage 1994 Completed [facility] of 00:00:00 [facility] HEP B, Adult Dosage 1994 Completed [facility] of 00:00:00 [facility] HEP B, Adult Dosage 1994 Completed [facility] of 00:00:00 [facility] HEP B, Adult Dosage 1994 Completed [facility] of 00:00:00 [facility] HEP B, Adult Dosage 1994 Completed [facility] of 00:00:00 [facility] HEP B, Adult Dosage 1994 Completed [facility] of 00:00:00 [facility] HEP B, Adult Dosage 1994 Completed [facility] of 00:00:00 [facility] HEP B, Adult Dosage 1994 Completed [facility] of 00:00:00 [facility] HEP B, Adult Dosage 1994 Completed [facility] of 00:00:00 [facility] HEP B, Adult Dosage 1994 Completed [facility] of 00:00:00 [facility] HEP B, Adult Dosage 1994 Completed [facility] of 00:00:00 [facility] HEP B, Adult Dosage 1994 Completed [facility] 00:00:00 [facility] HEP B, Adult Dosage 1994 Completed [facility] of 00:00:00 [facility] HEP B, Adult Dosage 1994 Completed [facility] 00:00:00 [facility] HEP B, Adult Dosage 1994 Completed [facility] of 00:00:00 [facility] HEP B, Adult Dosage 1994 Completed [facility] 00:00:00 [facility] HEP B, Adult Dosage 1994 Completed [facility] of 00:00:00 [facility] HEP B, Adult Dosage 1994 Completed [facility] of 00:00:00 [facility] HEP B, Adult Dosage 1994 Completed [facility] of 00:00:00 [facility] HEP B, Adult Dosage 1994 Completed [facility] 00:00:00 [facility] HEP B, Adult Dosage 1994 Completed [facility] 00:00:00 [facility] Hep B, adult 1994 [facility] 00:00:00 Hep B, adult 1994 Completed [facility] 00:00:00 Hep B, adult 1994 Completed [facility] 00:00:00 Hep B, adult 1994 Completed [facility] 00:00:00 HEP B, Adult Dosage 1994 Completed [facility] 00:00:00 [facility] HEP B, Adult Dosage 1994 Completed [facility] of 00:00:00 [facility] HEP B, Adult Dosage 1994 Completed [facility] of 00:00:00 [facility] HEP B, Adult Dosage 1994 Completed [facility] of 00:00:00 [facility] HEP B, Adult Dosage 1994 Completed [facility] of 00:00:00 [facility] HEP B, Adult Dosage 1994 Completed [facility] of 00:00:00 [facility] HEP B, Adult Dosage 1994 Completed [facility] of 00:00:00 [facility] HEP B, Adult Dosage 1994 Completed [facility] of 00:00:00 [facility] HEP B, Adult Dosage 1994 Completed [facility] of 00:00:00 [facility] HEP B, Adult Dosage 1994 Completed [facility] 00:00:00 [facility] HEP B, Adult Dosage 1994 Completed [facility] 00:00:00 [facility] HEP B, Adult Dosage 1994 Completed [facility] 00:00:00 [facility] HEP B, Adult Dosage 1994 Completed [facility] 00:00:00 [facility] HEP B, Adult Dosage 1994 Completed [facility] 00:00:00 [facility] HEP B, Adult Dosage 1994 Completed [facility] 00:00:00 [facility] HEP B, Adult Dosage 1994 Completed [facility] of 00:00:00 [facility] HEP B, Adult Dosage 1994 Completed [facility] of 00:00:00 [facility] HEP B, Adult Dosage 1994 Completed [facility] of 00:00:00 [facility] HEP B, Adult Dosage 1994 Completed [facility] of 00:00:00 [facility] HEP B, Adult Dosage 1994 Completed [facility] 00:00:00 [facility] HEP B, Adult Dosage 1994 Completed [facility] of 00:00:00 [facility] HEP B, Adult Dosage 1994 Completed [facility] of 00:00:00 [facility] HEP B, Adult Dosage 1994 Completed [facility] of 00:00:00 [facility] HEP B, Adult Dosage 1994 Completed [facility] of 00:00:00 [facility] HEP B, Adult Dosage 1994 Completed [facility] of 00:00:00 [facility] HEP B, Adult Dosage 1994 Completed [facility] of 00:00:00 [facility] HEP B, Adult Dosage 1994 Completed [facility] 00:00:00 [facility] HEP B, Adult Dosage 1994 Completed [facility] 00:00:00 [facility] HEP B, Adult Dosage 1994 Completed [facility] 00:00:00 [facility] HEP B, Adult Dosage 1994 Completed [facility] 00:00:00 [facility] HEP B, Adult Dosage 1994 Completed [facility] 00:00:00 [facility] HEP B, Adult Dosage 1994 Completed [facility] of 00:00:00 [facility] HEP B, Adult Dosage 1994 Completed [facility] 00:00:00 [facility] Hep B, adult 1994 Completed [facility] 00:00:00 Hep B, adult 1994 Completed [facility] 00:00:00 Hep B, adult 1994 Completed [facility] 00:00:00 Hep B, adult 1994 Completed [facility] 00:00:00 Vital Signs Vital Name Observation Time Observation Value Comments Source Systolic blood 2022-10-12 22:34:00 131 mm[Hg] [facility] pressure [facility] Diastolic blood 2022-10-12 22:34:00 74 mm[Hg] [facility] of [facility] Heart rate 2022-10-12 22:34:00 105 /min [facility] Body temperature 2022-10-12 22:34:00 36.83 Violet [facility] Respiratory rate 2022-10-12 22:34:00 18 /min [facility] Body height 2022-10-12 22:34:00 160 cm [facility] Body weight 2022-10-12 22:34:00 90.266 kg [facility] BMI 2022-10-12 22:34:00 35.25 kg/m2 [facility] Systolic blood 2022-09-21 15:44:00 127 mm[Hg] [facility]iver [facility] of pressure [facility] Diastolic blood 2022-09-21 15:44:00 75 mm[Hg] Unive rs[facility] of pressure [facility] Heart rate 2022-09-21 15:44:00 60 /min [facility] Body temperature 2022-09-21 15:44:00 36.72 Violet [facility] Respiratory rate 2022-09-21 15:44:00 18 /min [facility] Body height 2022-09-21 15:44:00 160 cm [facility] Body weight 2022-09-21 15:44:00 89.812 kg [facility] BMI 2022-09-21 15:44:00 35.07 kg/m2 [facility] Systolic blood 2022-09-08 15:13:00 130 mm[Hg] [facility]iver [facility] of pressure [facility] Diastolic blood 2022-09-08 15:13:00 83 mm[Hg] [facility]ive [facility] of pressure [facility] Heart rate 2022-09-08 15:10:00 75 /min [facility] Body temperature 2022-09-08 15:10:00 36.78 Violet [facility] Respiratory rate 2022-09-08 15:10:00 18 /min [facility] Body height 2022-09-08 15:10:00 160 cm [facility] Body weight 2022-09-08 15:10:00 94.802 kg [facility] BMI 2022-09-08 15:10:00 37.02 kg/m2 [facility] Systolic blood 2022-09-04 13:00:00 124 mm[Hg] [facility]iver [facility] of pressure [facility] Diastolic blood 2022-09-04 13:00:00 85 mm[Hg] [facility]ive [facility] of pressure [facility] Heart rate 2022-09-04 13:00:00 79 /min [facility] Body temperature 2022-09-04 13:00:00 36.61 Violet [facility] Respiratory rate 2022-09-04 13:00:00 16 /min [facility] Oxygen saturation in 2022-09-04 13:00:00 98 /min [facility] Arterial blood by [facility] Pulse oximetry Branch Body height 2022-09-02 19:43:00 160 cm [facility] Body weight 2022-09-02 19:43:00 101.152 kg [facility] BMI 2022-09-02 19:43:00 39.50 kg/m2 [facility] Systolic blood 2022-09-01 20:50:00 132 mm[Hg] Univer [facility] of pressure [facility] Diastolic blood 2022-09-01 20:50:00 89 mm[Hg] [facility]ive [facility]ity of pressure [facility] Heart rate 2022-09-01 20:49:00 79 /min [facility] Body temperature 2022-09-01 20:49:00 36.67 Violet [facility] Respiratory rate 2022-09-01 20:49:00 17 /min [facility] Body height 2022-09-01 20:49:00 160 cm [facility] [facility] [place] Body weight 2022-09-01 20:49:00 101.061 kg [facility] [place] BMI 2022-09-01 20:49:00 39.47 kg/m2 [facility] Systolic blood 2022-08-25 14:08:00 117 mm[Hg] Univer sity of [facility] Diastolic blood 2022-08-25 14:08:00 79 mm[Hg] Unive rsity of pressure [facility] Heart rate 2022-08-25 14:08:00 80 /min [facility] Body temperature 2022-08-25 14:08:00 36.78 Violet [facility] Respiratory rate 2022-08-25 14:08:00 16 /min [facility] Body height 2022-08-25 14:08:00 160 cm [facility] Body weight 2022-08-25 14:08:00 97.977 kg [facility] BMI 2022-08-25 14:08:00 38.26 kg/m2 Universi ty of [facility] Oxygen saturation in 2022-08-25 14:08:00 97 /min University of Arterial blood by [facility] Pulse oximetry Branch Systolic blood 2022-08-18 15:22:00 130 mm[Hg] Univer sity of pressure [facility] Diastolic blood 2022-08-18 15:22:00 84 mm[Hg] Unive rsity of pressure [facility] Heart rate 2022-08-18 15:22:00 80 /min [facility] Body temperature 2022-08-18 15:22:00 36.83 Violet [facility] Respiratory rate 2022-08-18 15:22:00 18 /min [facility] Body height 2022-08-18 15:22:00 160 cm [facility] Body weight 2022-08-18 15:22:00 100.245 kg [facility] BMI 2022-08-18 15:22:00 39.15 kg/m2 [facility] Systolic blood 2022-08-11 21:57:00 132 mm[Hg] Univer [facility]ity [facility] Diastolic blood 2022-08-11 21:57:00 80 mm[Hg] Unive rsity of pressure [facility] Heart rate 2022-08-11 21:57:00 91 /min [facility] Body temperature 2022-08-11 21:57:00 36.83 Violet [facility] Respiratory rate 2022-08-11 21:57:00 16 /min [facility] Body height 2022-08-11 21:57:00 160 cm [facility] Body weight 2022-08-11 21:57:00 99.973 kg [facility] BMI 2022-08-11 21:57:00 39.04 kg/m2 [facility] Oxygen saturation in 2022-08-11 21:57:00 97 /min University Arterial blood by [facility] Pulse oximetry Branch Systolic blood 2022-07-26 13:10:00 128 mm[Hg] [facility]iver [facility] Diastolic blood 2022-07-26 13:10:00 84 mm[Hg] Unive rsity of [facility] Heart rate 2022-07-26 13:10:00 83 /min [facility] Respiratory rate 2022-07-26 13:10:00 18 /min [facility] Body height 2022-07-26 13:10:00 160 cm [facility] Body weight 2022-07-26 13:10:00 99.02 kg [facility] BMI 2022-07-26 13:10:00 38.67 kg/m2 [facility] Oxygen saturation in 2022-07-26 13:10:00 98 /min [facility] P[facility] Systolic blood 2022-07-13 14:43:00 119 mm[Hg] [facility] Diastolic blood 2022-07-13 14:43:00 79 mm[Hg] Unive rsity of [facility] Heart rate 2022-07-13 14:43:00 83 /min [facility] Body temperature 2022-07-13 14:43:00 36.78 Violet [facility] Respiratory rate 2022-07-13 14:43:00 18 /min [facility] Body height 2022-07-13 14:43:00 160 cm [facility] Body weight 2022-07-13 14:43:00 96.616 kg [facility] BMI 2022-07-13 14:43:00 37.73 kg/m2 [facility] Systolic blood 2022-06-28 13:28:00 124 mm[Hg] [facility] Diastolic blood 2022-06-28 13:28:00 85 mm[Hg] Unive rsity of [facility] Heart rate 2022-06-28 13:28:00 78 /min [facility] Body temperature 2022-06-28 13:28:00 36.67 Violet [facility] Respiratory rate 2022-06-28 13:28:00 16 /min [facility] Body height 2022-06-28 13:28:00 160 cm [facility] Body weight 2022-06-28 13:28:00 96.979 kg [facility] BMI 2022-06-28 13:28:00 37.87 kg/m2 [facility] Oxygen saturation in 2022-06-28 13:28:00 98 /min [facility] Pulse [facility] Systolic blood 2022-06-14 15:50:00 121 mm[Hg] Univer [facility]ity [facility] Diastolic blood 2022-06-14 15:50:00 79 mm[Hg] Unive [facility]ity of pressure [facility] Heart rate 2022-06-14 15:50:00 81 /min [facility] Body temperature 2022-06-14 15:50:00 36.67 Violet [facility] Respiratory rate 2022-06-14 15:50:00 18 /min [facility] Body height 2022-06-14 15:50:00 160 cm [facility] Body weight 2022-06-14 15:50:00 96.163 kg [facility] BMI 2022-06-14 15:50:00 37.55 kg/m2 [facility] Systolic blood 2022-05-13 13:11:00 129 mm[Hg] [facility]iver [facility] Diastolic blood 2022-05-13 13:11:00 84 mm[Hg] Unive [facility]ity [facility] Heart rate 2022-05-13 13:11:00 103 /min [facility] Body temperature 2022-05-13 13:11:00 36.39 Violet [facility] Respiratory rate 2022-05-13 13:11:00 16 /min [facility] Body height 2022-05-13 13:11:00 160 cm [facility] Body weight 2022-05-13 13:11:00 95.936 kg [facility] BMI 2022-05-13 13:11:00 37.47 kg/m2 [facility] Systolic blood 2022-04-15 13:45:00 125 mm[Hg] [facility] Diastolic blood 2022-04-15 13:45:00 85 mm[Hg] Unive [facility]ity of [facility] Heart rate 2022-04-15 13:45:00 63 /min [facility] Body temperature 2022-04-15 13:45:00 36.67 Violet [facility] Respiratory rate 2022-04-15 13:45:00 18 /min [facility] Body height 2022-04-15 13:45:00 160 cm [facility] Body weight 2022-04-15 13:45:00 92.534 kg [facility] BMI 2022-04-15 13:45:00 36.14 kg/m2 [facility] Systolic blood 2022-03-18 16:20:00 122 mm[Hg] [facility] Diastolic blood 2022-03-18 16:20:00 79 mm[Hg] Unive rsity of [facility] Heart rate 2022-03-18 16:20:00 83 /min [facility] Body temperature 2022-03-18 16:20:00 36.89 Violet [facility] Respiratory rate 2022-03-18 16:20:00 18 /min [facility] Body height 2022-03-18 16:20:00 160 cm [facility] Body weight 2022-03-18 16:20:00 91.128 kg [facility] BMI 2022-03-18 16:20:00 35.59 kg/m2 [facility] Systolic blood 2022-02-18 13:28:00 119 mm[Hg] [facility]iver [facility] Diastolic blood 2022-02-18 13:28:00 84 mm[Hg] [facility]ive [facility] Heart rate 2022-02-18 13:22:00 78 /min [facility] Body temperature 2022-02-18 13:22:00 36.67 Violet [facility] Respiratory rate 2022-02-18 13:22:00 18 /min [facility] Body height 2022-02-18 13:22:00 160 cm [facility] Body weight 2022-02-18 13:22:00 91.173 kg [facility] BMI 2022-02-18 13:22:00 35.61 kg/m2 [facility] Systolic blood 2022-01-21 13:43:00 133 mm[Hg] Univer [facility]ity of [facility] Diastolic blood 2022-01-21 13:43:00 88 mm[Hg] Unive rsity of pressure [facility] Heart rate 2022-01-21 13:42:00 86 /min Universi ty of [facility] Respiratory rate 2022-01-21 13:42:00 18 /min Univ ersity of [facility] Body height 2022-01-21 13:42:00 160 cm [facility]i ty of [facility] Body weight 2022-01-21 13:42:00 91.23 kg [facility]i ty [facility] BMI 2022-01-21 13:42:00 35.63 kg/m2 Universi ty [facility] Oxygen saturation in 2022-01-21 13:42:00 99 /min [facility] Arterial blood by [facility] Pulse oximetry Branch Body weight 2021-09-11 13:23:00 [facility]987 [facility] 2021-09-11 13:23:00 35.78 [facility] Systolic blood 2021-06-16 16:33:00 129 mm[facility]Hg] [facility] Diastolic blood 2021-06-16 16:33:00 90 mm[Hg] [facility] Heart rate 2021-06-16 16:33:00 71 /min [facility] Body temperature 2021-06-16 16:33:00 36.44 Violet [facility] Respiratory rate 2021-06-16 16:33:00 20 /min [facility] Body height 2021-06-16 16:33:00 161.2 cm [facility] Body weight 2021-06-16 16:33:00 88.905 kg [facility] BMI 2021-06-16 16:33:00 34.21 kg[facility]m2 [facility] Oxygen saturation in 2021-06-16 16:33:00 100 /min [facility] Arterial blood by Pulse oximetry Systolic blood 2021-05-26 19:57:00 119 mm[Hg] [facility] Diastolic blood 2021-05-26 19:57:00 75 mm[Hg] [facility] Heart rate 2021-05-26 19:57:00 78 /min [facility] Body temperature 2021-05-26 19:57:00 35.89 Violet [facility] Respiratory rate 2021-05-26 19:57:00 16 /min [facility] Body height 2021-05-26 19:57:00 160 cm [facility] Body weight 2021-05-26 19:57:00 89.812 [facility] BMI 2021-05-26 19:57:00 35.07 kg[facility]m2 [facility] Procedures Procedure Date / Time Performing Clinician Source Performed POCT TEST 2022-10-12 23:27:00 Adum, Krystle Cabello [facility] CONSENT FOR 2022-10-12 06:01:00 Doctor Unassigned, No [facility] CONTRACEPTION [facility] DISABILITY/FMLA 2022-09-29 06:01:00 Doctor Unassigned, No [facility] Name [facility] CBC WITH DIFF 2022-09-04 09:12:00 Adum, Krystle Cabello [facility] CENTRAL NEURAXIAL BLOCK 2022-09-03 12:21:18 Jillian Middleton [facility] SGOT (ASPARTATE AMINO 2022-09-02 20:20:00 Adum, Krystle Cabello [facility] TRANSFER) Medical Branch CREATININE 2022-09-02 20:20:00 Adum, Krystle Cabello [facility] ALANINE AMINO 2022-09-02 20:20:00 Adum, Krystle Cabello [facility] TRANSFERASE(SGPT Medical Branch LACTATE DEHYDROGENASE 2022-09-02 20:20:00 Adum, Krystle Cabello [facility] URIC ACID 2022-09-02 20:20:00 Adum, Krystle Cabello [facility] CBC WITH DIFF 2022-09-02 20:20:00 Adum, Krystle Cabello [facility] RUBELLA SCREEN IGG 2022-09-02 20:20:00 Adum, Krystle Cabello [facility] HEPATITIS B SURFACE 2022-09-02 20:20:00 Adum, Krystle Cabello [facility] ANTIGEN [facility] ADC OR ELKIN ONLY - 2022-09-02 20:20:00 Adum, Krystle Cabello [facility] RPR [facility] PROTEIN CREAT RATIO 2022-09-02 20:20:00 Adum, Krystle Cabello [facility] URINE RANDOM [facility] HB ABO GROUPING 2022-09-02 20:15:00 Adum, Krystle Cabello [place] CONSENT/REFUSAL FOR 2022-09-02 18:37:08 Doctor Unassigned, No [facility] DIAGNOSIS AND TREATMENT [facility] ASSIGNMENT OF BENEFITS 2022-09-02 18:35:05 Doctor Unassigned, No [facility] POCT URINALYSIS W/O 2022-09-01 00:00:00 Adum, Krystle Cabello [facility] POCT URINALYSIS W/O 2022-08-25 00:00:00 Adum, Krystle aCbello [facility] FLU VACC (), 6 2022-08-18 15:33:44 Adum, Krystle Cabello [facility] MO-64 YRS, .5ML, IM, Medical [facility] QUAD (FLUCELVAX) POCT URINALYSIS W/O 2022-08-18 00:00:00 Adum, Krystle Cabello [facility] DSU PRE-OP 2022-08-11 05:01:00 Doctor Unassigned, No [facility] POCT URINALYSIS W/O 2022-08-11 00:00:00 Adum, Krystle Cabello [facility] POCT URINALYSIS W/O 2022-07-26 13:11:00 FishIan [facility] SPECIFIC [facility] POCT URINALYSIS W/O 2022-07-13 00:00:00 FishIan [facility] POCT URINALYSIS W/O 2022-06-28 00:00:00 Ian Reese [facility] TDAP VACCINE, >11 YRS, 2022-06-14 15:52:51 [facility] W/O 2022-05-13 13:13:00 FishIan [facility] POCT URINALYSIS W/O 2022-04-15 00:00:00 Ian Reese [facility] POCT URINALYSIS W/O 2022-03-18 00:00:00 Ian Reese [facility] FLU VACC (), 2022-02-18 13:25:01 [facility] 2-64 YRS, .5ML, IM, [facility] Medical Branch (FLUCELVAX) POCT URINALYSIS W/O 2022-02-18 00:00:00 Ian Reese [facility] ASSIGNMENT OF BENEFITS 2022-01-28 14:03:14 Doctor Unassigned, No [facility] <14 WEEKS US 2022-01-21 14:26:19 Ian Reese [facility] POCT TEST 2022-01-21 13:50:00 Ian Reese [facility] POCT URINALYSIS W/O 2022-01-21 13:50:00 Ian Reese [facility] 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 2022-01-21 05:01:00 Doctor Unassigned, No [facility] COMPREHENSIVE METABOLIC 2021-05-26 20:46:00 Gregorio Cruz [facility] PANEL LIPID PANEL 2021-05-26 20:46:00 Gregorio Cruz [facility] PAP W/REFLEX HPV IF 2021-05-26 20:24:00 Gregorio Cruz [facility] ASC-US OR ABOVE GC/CHLAMYDIA 2021-05-26 20:24:00 Gregorio Cruz [facility] HPV (NO GENOTYPING) 2021-05-26 20:24:00 Gregorio Cruz [facility] Encounters Start End Encounter Admission Attending Care Care Encounter Source Date/Time Date/Time Type Type Clinicians Facility Department ID 2021-10-03 Outpatient SAMANTHA [facility] [id number] OR 09:19:09 COLBY Alvarez 2021-05-21 Outpatient TEJ [facility] [id number] OR 10:30[facility] 2023-06-21 2023-06-21 Outpatient R ADUM, [facility] [id number] Univers 14:00:00 14:00:00 KRYSTLE ity [facility] 2023-06-17 2023-06-17 Telephone Adum, [facility] [id number] Univers 00:00:00 00:00:00 Krystle Cabello MARGARET 350.1.13.10 ity [place] [id number] [place] [address] 2023-06-14 2023-06-14 Telephone Adum, [facility] [id number] Univers 00:00:00 00:00:00 Krystle Cabello MARGARET 350.1.13.10 ity [facility] 4.[place] [id number] [address] 2022-10-12 2022-10-12 Outpatient R ADUM, [facility] [id number] Univers 15:45:00 16:56:43 KRYSTLE itanjelica [facility] 2022-10-12 2022-10-12 Routine Adum, [facility] [id number] Univers 15:45:00 16:56:43 Krystle Cabello MARTIN 350.1.13.10 ity of [place] [id number] [address] 2022-10-12 2022-10-12 Orders Doctor STEVEN [id number] [id number] Univers 00:00:00 00:00:00 Only Unassigned, NIRMALA 350.1.13.10 ity of [place] [facility] 4.2.7.2.686 [place] as [id number] [address] 2022-09-29 2022-09-29 Orders Doctor STEVEN 1.2.840.114 [id number] Univers 00:00:00 00:00:00 Only Unassigned, NIRMALA 350.1.13.10 ity of [place] [facility] 4.2.7.2.686 [place] as [id number] [address] 2022-09-21 2022-09-21 Outpatient R ADUM, [facility] [id number] Univers 09:45:00 10:01:17 KRYSTLE itanjelica [facility] 2022-09-21 2022-09-21 Routine Adum, [facility] [id number] Univers 09:45:00 10:01:17 Krystlegeovanny SALAZAR 350.1.13.10 ity of Visit WOMEN'S 4.2.7.2.686 [facility] [id number] [address] 2022-09-10 2022-09-10 Telephone Ad, [facility] 1.2.840.114 [id number] Univers 00:00:00 00:00:00 Krystle SALAZAR 350.1.13.10 i ty of PEDIATRIC 4.2.7.2.686 [facility] [id number] [address] 2022-09-08 2022-09-08 Outpatient R AD, [facility] [id number] Univers 10:00:00 10:11:02 KRYSTLE recinos [facility] 2022-09-08 2022-09-08 Nurse Nurse, Lkj [facility] 1.2.840.114 [id number] Univers 10:00:00 10:11:02 Visit AdKrystle herrera MARTIN 350.1.13.10 ity of WOMEN'S 4.2.7.2.686 [facility] [id number] [address] 2022-09-02 2022-09-[address] [id number] Univers 13:27:00 18:55:00 KRYSTLE recinos [facility] 2022-09-02 2022-09-04 Hospital [facility] 1.2.840.114 [id number] Univers 13:27:00 18:55:00 Encounter Krystle ROBLES 350.1.13.10 ity of [place] 4.2.7.2.686 [facility] [id number] [place] [address] [place] 2022-09-03 2022-09-03 Anesthesia Elina Gonsalez [facility] 1.2.840.1 [id number] Univers 06:45:00 18:31:00 Event Jillian Middleton 350.1.13.10 ity of [facility] 4.2.7.2.686 [facility] [id number] [place] [address] [place] 2022-09-01 2022-09-01 Outpatient R ADUM, [facility] [id number] Univers 15:30:00 16:32:11 KRYSTLE ity [facility] 2022-09-01 2022-09-01 Routine Tritschler, Cheryal [facility] 1.2. 840.114 [id number] Univers 15:30:00 16:32:11 Adum, Krystle Irineo SALAZAR 350.1.13.10 ity of Visit WOMEN'S 4.2.7.[address] [place] [id number] 2022-08-25 2022-08-25 Outpatient R ADUM, [facility] [id number] Univers 09:00:00 09:34:55 KRYSTLE ity [facility] 2022-08-25 2022-08-25 Routine Adum, [facility] [id number] Univers 09:00:00 09:34:55 Krystle SALAZAR 350.1.13.10 ity of Visit WOMEN'S 4.2.7.2.[address] [place] [id number] 2022-08-18 2022-08-18 Outpatient R ADUM, [facility] [id number] Univers 10:00:00 10:39:45 KRYSTLE ity [facility] 2022-08-18 2022-08-18 Routine Adum, [facility] [id number] Univers 10:00:00 10:39:45 Krystle SALAZAR 350.1.13.10 ity of Visit WOMEN'S 4.2.7.2.[address] [place] [id number] 2022-08-12 2022-08-12 Janitorial Tech Lab, Ang - Db [facility] 1.2.840.1 [id number] Univers 10:00:00 10:15:00 Visit AdumKrystle 350.1.13.10 ity of [facility] 4.2.7.2.686 [place] as BURAK?BLEA [id number] [place] swathi BAUER [address] [place] [address] MEDICAL OFFICE BUILDING 2022-08-12 2022-08-12 Outpatient R ADUM, [facility] [id number] Univers 10:00:00 10:00:00 KRYSTLE ity [facility] 2022-08-11 2022-08-11 Outpatient R ADUM, [facility] [id number] Univers 16:15:00 17:23:05 KRYSTLE ity [facility] 2022-08-11 2022-08-11 Routine Adum, [facility] [id number] Univers 16:15:00 17:23:05 Krystle SALAZAR 350.1.13.10 ity [place] [id number] [address] 2022-08-11 2022-08-11 Orders Doctor STEVEN 1.2.840.114 [id number] Univers 00:00:00 00:00:00 Only Unassigned, NIRMALA 350.1.13.10 ity of [place] [facility] 4.2.7.2.686 [place] as [id number] [address] 2022-07-26 2022-07-26 Outpatient R IAN REESE [facility] [id number] Univers 08:00:00 08:42:27 ity of [facility] 2022-07-26 2022-07-26 Routine Ian Reese [facility] 1.2.840.114 [id number] Univers 08:00:00 08:42:27 MARTIN 350.1.13.10 i ty of [place] [id number] [address] 2022-07-26 2022-07-26 Outpatient R IAN REESE [facility] [id number] Univers 08:00:00 08:00:00 ity of [facility] 2022-07-13 2022-07-13 Outpatient R IAN REESE [facility] [id number] Univers 09:30:00 10:14:28 ity of [facility] 2022-07-13 2022-07-13 Routine Ian Reese [facility] 1.2.840.114 [id number] [facility] 09:30:00 10:14:28 MARTIN 350.1.13.10 i ty of [place] [id number] [address] 2022-06-28 2022-06-28 Outpatient R IAN REESE [facility] [id number] [facility] 08:15:00 08:49:11 ity of [facility] 2022-06-28 2022-06-28 Routine Ian Reese [facility] 1.2.840.114 [id number] [facility] 08:15:00 08:49:11 MARTIN 350.1.13.10 i ty of [place] [id number] [address] 2022-06-21 2022-06-21 Janitorial Tech Lab, [place] - [facility] 1.2.840.1 [id number] [facility] 08:30:00 08:45:00 Visit Ian Reese 350.1.13.10 ity [facility] 4.2.7.2.686 [place] as BURAK?BLEA [id number] [address] MEDICAL OFFICE BUILDING 2022-06-21 2022-06-21 Outpatient R IAN REESE [facility] [id number] [facility] 08:30:00 08:30:00 ity of [facility] 2022-06-14 2022-06-14 Outpatient R IAN REESE [facility] [id number] [facility] 10:30:00 11:17:44 ity [facility] 2022-06-14 2022-06-14 Routine Ian Reese [facility] 1.2.840.114 [id number] [facility] 10:30:00 11:17:44 MARTIN 350.1.13.10 i ty [place] [id number] [address] 2022-05-13 2022-05-13 Routine Ian Reese [facility] 1.2.840.114 [id number] Univers 08:00:00 08:15:00 MARTIN 350.1.13.10 i ty of [place] [id number] [address] 2022-05-13 2022-05-13 Outpatient R IAN REESE [facility] [id number] Univers 08:00:00 [facility]:00[facility] 2022-04-19 2022-04-19 Janitorial Tech Ultrasound, Lam [facility] 1.2 .840.114 [id number] Univers 08:15:00 09:30:00 Visit Harjit Bermudez 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 [facility]1.13.10 [facility] 4.2.7.2.686 [place] as MATERNAL [id number] [facility] ical & CHILD [address] [place] [address] 2022-04-19 2022-04-19 Outpatient P SLIME [facility] [id number] Univers 08:15:00 08:15:00 HARJIT [facility] 2022-04-15 2022-04-15 Routine Ian Reese [facility] 1.2.840.114 [id number] Univers 08:15:00 09:00:57 MARTIN 350.1.13.10 i ty of [place] [id number] [address] 2022-04-15 2022-04-15 Outpatient R IAN REESE [facility] [id number] Univers 08:15:00 09:00:57 [facility] 2022-03-25 2022-03-25 Janitorial Tech Lab, [place] - [facility] 1.2.840.1 14 [id number] Univers 08:00:00 08:15:00 Visit Ian Reese 350.1.13.10 [facility] 4.2.7.2.686 Brandon as BURAK?BLEA [phone] [address] MEDICAL OFFICE BUILDING 2022-03-25 2022-03-25 Outpatient R IAN REESE [facility] [id number] Univers 08:00:00 08:00:00 ity of [facility] 2022-03-18 2022-03-18 Outpatient R IAN REESE [facility] [id number] Univers 11:00:00 11:41:07 ity of [facility] 2022-03-18 2022-03-18 Routine Ian Reese [facility] 1.2.840.114 [id number] Univers 11:00:00 11:41:07 MARTIN 350.1.13.10 i ty of [place] [facility] [place] [id number] [address] 2022-02-18 2022-02-18 Outpatient R IAN REESE [facility] [id number] Univers 08:00:00 08:41:42 ity of [facility] 2022-02-18 2022-02-18 Routine Ian Reese [facility] 1.2.840.114 [id number] Univers 08:00:00 08:41:42 MARTIN 350.1.13.[address] [facility] [place] [id number] [address] 2022-01-28 2022-01-28 [facility], [place] - John [facility] 1.2.840.1 14 [id number] Univers 09:00:00 09:15:00 Visit Ian Reese 350.1.13.10 ity of [place] 4.2.7.2.686 Brandon as BURAK?BLEA [id number] [place] [address] MEDICAL OFFICE BUILDING 2022-01-28 2022-01-28 Outpatient R IAN REESE [facility] [id number] Univers 09:00:00 09:00:00 ity [facility] 2022-01-28 2022-01-28 Orders Doctor HARRIS 1.2.840.[id number] [place] [address] 00:00:00 00:00:00 Only Unassigned, NIRMALA 350.1.13.10 ity of [place] [facility] 4.2.7.2.686 Brandon as [phone] [address] 2022-01-26 2022-01-26 Outpatient R IAN REESE [facility] [id number] Univers 08:30:00 08:30:00 ity of [facility] 2022-01-21 2022-01-21 Initial Ian Reese [facility] 1.2.840.114 [id number] Univers 08:30:00 09:19:26 MARTIN 350.1.13.10 i ty of Visit WOMEN'S 4.2.7.2.686 [facility] [id number] [place] [address] [address] 2022-01-21 2022-01-21 Outpatient R IAN REESE [facility] [id number] Univers 08:30:00 09:19:26 ity of [facility] 2022-01-21 2022-01-21 Orders Doctor STEVEN 1.2.840.114 [id number] Univers 00:00:00 00:00:00 Only Unassigned, NIRMALA 350.1.13.10 ity of [place] [facility] 4.2.7.2.686 [facility] [id number] [place] [address] [address] 2021-09-11 2021-09-11 Telemedici Nyasia Salcedo 1.2.840.114 [id number] [place] 08:18:55 08:41:38 myranda CARDOZA 350.1.13.58 H [facility]IC 9.2.7.2.686 [id number] 1 2021-06-16 2021-06-16 Office LUCILA Cheung [facility] 1.2.840.114 [id number] [place] 10:27:56 11:59:51 Visit Sunshine JASON 350.1.13.58 He alth [place] 1 9.2.7.2.686 [id number] 9 2021-05-26 2021-05-26 Office LUCILA Cruz 1.2.840.114 12 [id number] [place] 14:48:53 15:24:48 Visit Gregorio CARDOZA 350.1.13.58 H [facility] 9.2.7.2.686 [id number] 1 Results Test Description Test Time Test Comments Results Result Comments Source POCT TEST 2022-10-12 23:27:00 Test Item Value Reference Range Interpretation Comme nts POCT PREG (test code = 1605) Negative On board controls acceptable with C Line (test code = 3574) Yes POCT PREG LOT # (test code = 3575) POCT PREG TEST DATE (test code = 3576) [facility] with [id number] 10:07:59 Test Item Value Reference Range Interpretation Comments WBC (test code = See_Comment H [Automated 6690-2) message] The system which generated this result transmit ky reference range : 4.30 - 11.10 10*3/?L. The reference range was not used to interpret this result as normal/abnormal . RBC (test code = See_Comment L [Automated 789-8) message] The system which generated this result transmit ky reference range : 3.93 - 5.25 10*6/?L. The reference range was not used to interpret this result as normal/abnormal . HGB (test code = 11.2 g/dL 11.6-15.0 L 718-7) HCT (test code = 32.3 % 35.7-45.2 L 4544-3) MCV (test code = 82.4 fL 80.6-95.5 787-2) MCH (test code = 28.6 pg 25.9-32.8 785-6) MCHC (test code = 34.7 g/dL 31.6-35.1 786-4) RDW-SD (test code = 38.1 fL 39.0-49.9 L 17882-5) RDW-CV (test code = 12.8 % 12.0-15.5 788-0) PLT (test code = See_Comment [Automated 777-3) message] The system which generated this result transmit ky reference range : 166 - 358 10*3/ ?L. The reference range was not u sed to interpret th is result as normal/abnormal . MPV (test code = 11.0 fL 9.5-12.9 14329-1) NRBC/100 WBC (test See_Comment [Automat ed code = 9845451760) message] The system which generated this result transmit ky reference range : 0.0 - 10.0 /100 WBCs. The reference range was not used to interpret this result as normal/abnormal . NRBC x10^3 (test code See_Comment [Auto mated = 7934117895) message] The system which generated this result transmit ky reference range : 10*3/?L. The reference range was not used to interpret this result as normal/abnormal . GRAN MAT (NEUT) % 79.2 % (test code = 770-8) IMM GRAN % (test code 1.60 % = 3087380732) LYMPH % (test code = 10.6 % 736-9) MONO % (test code = 8.3 % 5905-5) EOS % (test code = 0.1 % 713-8) BASO % (test code = 0.2 % 706-2) GRAN MAT x10^3(ANC) 12.75 10*3/uL 1.88-7.09 H (test code = 3196980267) IMM GRAN x10^3 (test 0.26 10*3/uL 0.00-0.06 H code = 5962582049) LYMPH x10^3 (test code 1.70 10*3/uL 1.32-3.29 = 731-0) MONO x10^3 (test code 1.34 10*3/uL 0.33-0.92 H = 742-7) EOS x10^3 (test code = 0.03-0.39 L 711-2) BASO x10^3 (test code 0.04 10*3/uL 0.01-0.07 = 704-7) Lab Interpretation Abnormal (test code = 23271-7) [facility] ([facility] [id number] 18:45:12 Test Item Value Reference Range Interpretation Comments Rubella screen IgG Negative Negative (test code = 9919855685) BRENDEN (test code = BRENDEN) Positive - Indicates the patient was exposed to Rubella through infection or vaccination.Negative - Indicates the patient could be susceptible to Rubella infection.Equivocal - A second specimen should be sent. [facility] OR ELKIN COFFEY - [id number] 09:01:31 Test Item Value Reference Range Interpretation Comments RPR (Qualitative) (test code = Nonreactive Nonreactive 26602-6) Lab Interpretation (test code = Normal 22523-7) [facility] CenterHepatitis B Surface [id number] 06:27:36 Test Item Value Reference Range Interpretation Comments HBsAg Semi-Quantitative (test code = Negative Negative 5195-3) [facility] CenterALANINE AMINO TRANSFERASE([id number] 22:07:20 Test Item Value Reference Range Interpretation Comments ALTv (test code = 1742-6) 15 U/L 5-35 Lab Interpretation (test code = Normal 04795-9) [facility] CenterURIC [id number] 22:07:20 Test Item Value Reference Range Interpretation Comments URIC ACID (test code = 1147579379) 4.5 mg/dL 2.9-6.0 Lab Interpretation (test code = Normal 78193-8) [facility] CenterSGOT (ASPARTATE AMINO TRANSFER)2022-09-02 22:06:59 Test Item Value Reference Range Interpretation Comments AST(SGOT) (test code = 4381466382) 20 U/L 13-40 Lab Interpretation (test code = Normal 37422-2) [facility] CenterCREATININE2022-10-27 22:06:59 Test Item Value Reference Range Interpretation Comments CREATININE (test code 0.59 mg/dL 0.50-1.04 = 9862819086) eGFR (test code = mL/min/1.73m2 5120333114) BRENDEN (test code = BRENDEN) Association of Glomerular Filtration Rate (GFR) and Staging of Kidney Disease* + + +- +| GFR (mL/min/1.73 m2) ?| With Kidney Damage ?| ?Without Kidney Damage+ ------+ ----+ ------+| ?>90 ?| ?Stage one ?| ? Normal ?+ -+ + -+| ?60-89 ?| ?Stage two ?| ? Decreased GFR ? + + +- +| ?30-59 ?| ?Stage three ?| ? Stage three ? + + +- +| ?15-29 ?| ?Stage four ? | ? Stage four ?+ -+ + -+| ?<15 (or dialysis) ? ?| ?Stage five ? | ? Stage five ?+ -+ + -+ *Each stage assumes the associated GFR level has been in effect for at least three months. ?Stages 1 to 5, with or without kidney disease, indicate chronic kidney disease. Notes: Determination of stages one and two (with eGFR >59mL/min/1.73 m2) requires estimation of kidney damage for at least three months as defined by structural or functional abnormalities of the kidney, manifested by either:Pathological abnormalities or Markers of kidney damage (including abnormalities in the composition of the blood or urine or abnormalities in imaging tests). [facility] CenterLACTATE [id number] 22:06:18 Test Item Value Reference Range Interpretation Comments LDH (test code = 2956929816) 149 U/L 120-246 Lab Interpretation (test code = Normal 84250-0) [facility] CenterType and Screen - ONCE [id number] 21:30:51 Test Item Value Reference Range Interpretation Comments ABO & RH (test code O Positive Performe d at [facility] = 20) Laboratory Serv [facility] Blood [facility]1 [address] [place], [place] [id number] Free: [phone] A No. [id number] IAT (test code = Negative Performed a t [facility] 1185) Laboratory [facility]1 [address] [place], [place] [address]Toll Free: [phone] A No. [id number] [facility] CenterCBC with [id number] 21:26:29 Test Item Value Reference Range Interpretation Comments WBC (test code = See_Comment [Automated 7690-2) message] The sy stem which generated this result transmitted reference range : 4.30 - 11.10 10*3/?L. The reference range was not used to interpret this result as normal/abnormal . RBC (test code = See_Comment [Automated 915-8) message] The sy stem which generated this result transmitted reference range : 3.93 - 5.25 10*6/?L. The reference range was not used to interpret this result as normal/abnormal . HGB (test code = 12.0 g/dL 11.6-15.0 718-7) HCT (test code = 33.5 % 35.7-45.2 L 4544-3) MCV (test code = 81.1 fL 80.6-95.5 787-2) MCH (test code = 29.1 pg 25.9-32.8 785-6) MCHC (test code = 35.8 g/dL 31.6-35.1 H 786-4) RDW-SD (test code = 36.9 fL 39.0-49.9 L 57655-2) RDW-CV (test code = 12.6 % 12.0-15.5 788-0) PLT (test code = See_Comment [Automated 777-3) message] The sy stem which generated this result transmitted reference range : 166 - 358 10*3/ ?L. The reference r janna was not used to interpret this result as normal/abnormal . MPV (test code = 11.0 fL 9.5-12.9 54393-3) NRBC/100 WBC (test See_Comment [Automat ed code = 7030922148) message] The system which generated this result transmitted reference range : 0.0 - 10.0 /100 WBCs. The refer ence range was not u sed to interpret th is result as normal/abnormal . NRBC x10^3 (test code See_Comment [Auto mated = 1294188089) message] The s ystem which generated this result transmitted reference range : 10*3/?L. The reference range was not used to interpret this result as normal/abnormal . GRAN MAT (NEUT) % 72.3 % (test code = 770-8) IMM GRAN % (test code 0.40 % = 0855921007) LYMPH % (test code = 18.3 % 736-9) MONO % (test code = 8.4 % 5905-5) EOS % (test code = 0.3 % 713-8) BASO % (test code = 0.3 % 706-2) GRAN MAT x10^3(ANC) 5.69 10*3/uL 1.88-7.09 (test code = 1166795879) IMM GRAN x10^3 (test 0.03 10*3/uL 0.00-0.06 code = 6669692685) LYMPH x10^3 (test code 1.44 10*3/uL 1.32-3.29 = 731-0) MONO x10^3 (test code 0.66 10*3/uL 0.33-0.92 = 742-7) EOS x10^3 (test code = 0.03-0.39 L 711-2) BASO x10^3 (test code 0.01-0.07 = 704-7) Lab Interpretation Abnormal (test code = 57893-0) [facility] URINALYSIS W/O SPECIFIC [id number] 20:54:00 Test Item Value Reference Range Interpretation Comments POCT PH U (test code = 3254) n/a 5-8 POCT U LEUK EST (test code = n/a Negative - Negative 3263) POCT U NIT (test code = 3262) n/a Negative - Negative POCT U PROT (test code = 3259) trace Negative - Negative POCT U GLU (test code = 3256) negative Negative - Negative POCT U KETONE (test code = 3258) n/a Negative - Negative POCT U BLD (test code = 3257) n/a Negative - Negative [facility] URINALYSIS W/O SPECIFIC [id number] 14:10:00 Test Item Value Reference Range Interpretation Comments POCT PH U (test code = 3254) n/a 5-8 POCT U LEUK EST (test code = n/a Negative - Negative 3263) POCT U NIT (test code = 3262) n/a Negative - Negative POCT U PROT (test code = 3259) negative Negative - Negative POCT U GLU (test code = 3256) negative Negative - Negative POCT U KETONE (test code = 3258) n/a Negative - Negative POCT U BLD (test code = 3257) n/a Negative - Negative [facility] URINALYSIS W/O SPECIFIC [id number] 15:33:00 Test Item Value Reference Range Interpretation Comments POCT PH U (test code = 3254) N/A 5-8 POCT U LEUK EST (test code = N/A Negative - Negative 3263) POCT U NIT (test code = 3262) N/A Negative - Negative POCT U PROT (test code = 3259) Negative Negative - Negative POCT U GLU (test code = 3256) Negative Negative - Negative POCT U KETONE (test code = 3258) N/A Negative - Negative POCT U BLD (test code = 3257) N/A Negative - Negative [facility] URINALYSIS W/O SPECIFIC [id number] 22:01:00 Test Item Value Reference Range Interpretation Comments POCT PH U (test code = 3254) n/a 5-8 POCT U LEUK EST (test code = n/a Negative - Negative 3263) POCT U NIT (test code = 3262) n/a Negative - Negative POCT U PROT (test code = 3259) negative Negative - Negative POCT U GLU (test code = 3256) negative Negative - Negative POCT U KETONE (test code = 3258) n/a Negative - Negative POCT U BLD (test code = 3257) n/a Negative - Negative [facility] URINALYSIS W/O SPECIFIC [id number] 13:15:00 Test Item Value Reference Range Interpretation Comments POCT PH U (test code = 3254) n/a 5-8 POCT U LEUK EST (test code = n/a Negative - Negative 3263) POCT U NIT (test code = 3262) n/a Negative - Negative POCT U PROT (test code = 3259) negative Negative - Negative POCT U GLU (test code = 3256) negative Negative - Negative POCT U KETONE (test code = 3258) n/a Negative - Negative POCT U BLD (test code = 3257) n/a Negative - Negative Lab Interpretation (test code = Normal 75742-4) [facility] URINALYSIS W/O SPECIFIC [id number] 14:44:00 Test Item Value Reference Range Interpretation Comments POCT PH U (test code = 3254) N/A 5-8 POCT U LEUK EST (test code = N/A Negative - Negative 3263) POCT U NIT (test code = 3262) N/A Negative - Negative POCT U PROT (test code = 3259) Negative Negative - Negative POCT U GLU (test code = 3256) Negative Negative - Negative POCT U KETONE (test code = 3258) N/A Negative - Negative POCT U BLD (test code = 3257) N/A Negative - Negative [facility] URINALYSIS W/O SPECIFIC [id number] 13:35:00 Test Item Value Reference Range Interpretation Comments POCT PH U (test code = 3254) n/a 5-8 A POCT U LEUK EST (test code = n/a Negative - Negative 3263) POCT U NIT (test code = 3262) n/a Negative - Negative POCT U PROT (test code = 3259) negative Negative - Negative POCT U GLU (test code = 3256) Negative Negative - Negative POCT U KETONE (test code = 3258) n/a Negative - Negative POCT U BLD (test code = 3257) n/a Negative - Negative Lab Interpretation (test code = Abnormal 31806-6) [facility] URINALYSIS W/O SPECIFIC [id number] 13:13:00 Test Item Value Reference Range Interpretation Comments POCT PH U (test code = 3254) n/a 5-8 POCT U LEUK EST (test code = n/a Negative - Negative 3263) POCT U NIT (test code = 3262) n/a Negative - Negative POCT U PROT (test code = 3259) negative Negative - Negative POCT U GLU (test code = 3256) normal Negative - Negative POCT U KETONE (test code = 3258) n/a Negative - Negative POCT U BLD (test code = 3257) n/a Negative - Negative [facility] URINALYSIS W/O SPECIFIC [id number] 13:45:00 Test Item Value Reference Range Interpretation Comments POCT PH U (test code = 3254) n/a 5-8 POCT U LEUK EST (test code = n/a Negative - Negative 3263) POCT U NIT (test code = 3262) n/a Negative - Negative POCT U PROT (test code = 3259) trace Negative - Negative POCT U GLU (test code = 3256) negative Negative - Negative POCT U KETONE (test code = 3258) n/a Negative - Negative POCT U BLD (test code = 3257) n/a Negative - Negative [facility] URINALYSIS W/O SPECIFIC [id number] 16:19:00 Test Item Value Reference Range Interpretation Comments POCT PH U (test code = 3254) n/a 5-8 POCT U LEUK EST (test code = n/a Negative - Negative 3263) POCT U NIT (test code = 3262) n/a Negative - Negative POCT U PROT (test code = 3259) negative Negative - Negative POCT U GLU (test code = 3256) negative Negative - Negative POCT U KETONE (test code = 3258) n/a Negative - Negative POCT U BLD (test code = 3257) n/a Negative - Negative [facility] URINALYSIS W/O SPECIFIC [id number] 13:19:00 Test Item Value Reference Range Interpretation Comments POCT PH U (test code = 3254) n/a 5-8 POCT U LEUK EST (test code = n/a Negative - Negative 3263) POCT U NIT (test code = 3262) n/a Negative - Negative POCT U PROT (test code = 3259) negative Negative - Negative POCT U GLU (test code = 3256) negative Negative - Negative POCT U KETONE (test code = 3258) n/a Negative - Negative POCT U BLD (test code = 3257) n/a Negative - Negative [facility] [id number] 13:51:00 Test Item Value Reference Range Interpretation Comments POCT PH U (test code = 3254) n/a 5-8 POCT U LEUK EST (test code = n/a Negative - Negative 3263) POCT U NIT (test code = 3262) n/a Negative - Negative POCT U PROT (test code = 3259) negative Negative - Negative POCT U GLU (test code = 3256) negative Negative - Negative POCT U KETONE (test code = 3258) n/a Negative - Negative POCT U BLD (test code = 3257) n/a Negative - Negative Lab Interpretation (test code = Normal 67029-5) [facility] [id number] 13:50:00 Test Item Value Reference Range Interpretation Comments POCT PREG (test code = 1605) Positive On board controls acceptable with C Yes Line (test code = 3574) POCT PREG LOT # (test code = 3575) POCT PREG TEST DATE (test code = 3576) Lab Interpretation (test code = Normal 91699-8) [facility] w/reflex HPV if ASC-US or above 2021-06-02 14:14:00 Test Item Value Reference Interpretation Comments Range OR Pathology Report PATIENT: ? Darrick MARTINEZ (test code = LITZY ? 2648737) ?CASE NUMBER: ?[id number] OF : ? 1995 AGE: ?25 yrs SEX: F ? ? ? DATE COLLECTED: ?05/26/2021MRN: ? [id number] ?DATE RECEIVED: ? 05/27/2021ORDERING PHYSICIAN: Gregorio Cruz M.D. ?DATE REPORTED: ? 06/02/2021 ?RESUME SPECIALIST CYTOLOGY REPORTSOURCE: ?Cervix/Endocervix ? ? SPECIMEN SUBMITTED: Thin PrepCLINICAL HX / DX: ? ?Z01.419 Encounter for gynecological examination ? (general) (routine) without abnormal findings CYTOLOGY DIAGNOSIS: ? Atypical squamous cells of undetermined significance (ASC-US). SPECIMEN ADEQUACY: ?Satisfactory for evaluation.ECC: ?Endocervical/transformatio n component present. ?This PAP was manually screened due to unsuccessful pediatric neuropsychologist screening. ANIMAL GENETICIST: ? Clau LeuPATHOLOGIST: ?Tanja Painting M.D., PhDDATE REPORTED: ?05/29/2021 04:59 PM HIGH RISK HPV Results:High Risk HPV: ?Positive Testing is performed using FDA-approved APTIMA HPV assay (i.e.,Engine Repair Supervisor-mediate d amplification of E6/E7 viral mRNA followed byhybridization protection assay). ?This assay is designed to detect the 14 high-risk types of human papillomavirus (HPV Types 16, 18, 31, 33, 35, 39, 45,51, 52, 56, 58, 59, 66 and 68) known to cause cervical cancer. ?The assay hasbeen reported to detect more than 90% of CIN3+, an immediate precursor tocarcinoma in situ. A negative result does not exclude the possibility ofcytologic abnormalities or of future or underlying CIN2, CIN3, or cancer.Personal lubricants containing polyquaternium 15 and antifungal medicationscontaining tioconazole may interfere with the assay performance. ?In vitrotranscripts from low-risk HPV genotypes 26, 67, 70 and 82 exhibited cross-reactivity with the assay. ?The test result must be interpreted along with thepatient-s cytology history, other risk factors and other pertinent laboratorydata. ?The results of this test are not intended to prevent women fromproceeding to colposcopy. ?The assay performance has not been evaluated forHPV vaccinated individuals. ?The effects of other potential variables, such asvaginal discharge, use of tampons, etc. and specimen collection variableshave not been evaluated. ?This assay has been validated by the [facility] of the [facility] Department ofPathology and Laboratory Medicine. CPT CODES: ?49495, 48438, 65043XSA CODES: ?Z01.419 Reference Number: [id number] ? [facility] ? [address] [facility], [facility] [address].[facility], [place] [address] ?Email: [email or web address] Pathologist (test This case was A code = 0690473) electronically signed by Tanja Painting M.D., PhD Clinical History Z01.419 Encounter for A (test code = gynecological examination 7565114) (general) (routine) without abnormal findings Comments (test code A = 8499465) Frozen A Interpretation (test code = 8466093) Specimen ID (test A code = 2823611) BodySite (test code Cervix/Endocervix A = 2770273) SubSite (test code = A 3262399) Special Procedure Thin Prep A (test code = 8878668) Pieces (test code = A 7674564) Descriptive (test A code = 6285104) Size (test code = A 5342871) Block (test code = A 1809744) Slide (test code = A 3822202) Saved (test code = A 6143300) Gross Description . A (test code = 3191009) Initials (test code A = 3815268) Microscopic A Description (test code = 9354298) Diagnosis Atypical squamous cells of A Description (test undetermined significance code = 9187210) (ASC-US). Special Requests HPV (No Genotyping) A (test code = 7699552) Stain (test code = Pap Stain A 9981245) CPT Code (test code 32346;34770;83336 A = 5795609) ICD Code (test code Z01.419 A = 9153342) Specimen Adequacy Satisfactory for A (test code = evaluation. 2383443) Hormonal Evaluation Endocervical/transformation (test code = component present. 0503842) Cytotech Diagnosis Atypical squamous cells of A (test code = undetermined significance 1956754) (ASC-US). Recommendation (test A code = 0913349) PAP Comments (test A code = 0130809) General A Categorization (test code = 8780756) Preliminary A Diagnosis (test code = 7016201) Lab Interpretation Abnormal (test code = 12324-4) [facility] (No Genotyping)2021-06-02 14:14:00 Test Item Value Reference Range Interpretation Comments HPV (test code = 3716384) High Risk HPV: A Positive Lab Interpretation (test Abnormal code = 26086-7) [facility] - GC/[id number] 14:13:00 Test Item Value Reference Interpretation Comments Range OR Pathology Report PATIENT: ? JUAN, (test code = LITZY ? 2518781) ?CASE NUMBER: ?[id number] OF : ? 1995 AGE: ?25 yrs SEX: F ? DATE COLLECTED: ?05/26/2021MRN: ? [id number] ?DATE RECEIVED: ? 05/27/2021ORDERING PHYSICIAN: Gregorio Cruz M.D. ?DATE REPORTED: ? 05/28/2021 ? MOLECULAR REPORT CT/NG Results:Chlamydia: Chlamydia: ?NegativeGonorrhoeae: GC: ?Negative Testing is performed using FDA-approved APTIMA COMBO 2- Assay onthe [employer] system, i.e., a second generation of a target amplificationnucleic acid probe test that utilizes target capture, surgical corsetier-mediatedampli fication (TMA), and dual kinetic fluorescence detection (DKA)technologies. ?This APTIMA COMBO 2- assay is designed for the detectionof Chlamydia trachomatis (CT) and/or Neisseria gonorrhoeae (GC) rRNA inclinician-collected endocervical, vaginal, and male urethral swab specimens,patient-collected vaginal swab specimens, PreservCyt Solution liquid Papspecimens, and in female and male urine specimens from symptomatic andasymptomatic individuals.CT/GC viability and/or infectivity can-t be inferred from a positive test resultsince target RNA may persist in the absence of infectious microorganisms.A negative test doesn-t exclude the possibility of infection due to possibleimproper specimen collection/transport/handli ng (inadequate specimencollection), presence of inhibitor(s), concurrent antibiotic therapy, orpresence of insufficient RNA for detection. ?The test result must beinterpreted in conjunction with other laboratory and clinical data. ?Theperformance of vaginal swab specimens has not been evaluated in women. ?The performance of endocervical, vaginal, and male urethral swabspecimens, male and female urine specimens, and PreservCyt Solution liquidPap specimens has not been evaluated in adolescents less than 16 years ofage. ?The assay is not intended to replace cervical exams and endocervicalspecimens for diagnosis of female urogenital infections. ?The assay is notintended for the evaluation of suspected sexual abuse or for other medical-legal indications. ?For those patients whom a false positive result may haveadverse psycho-social impact, the [facility] recommends retesting.The assay has been validated by the [facility] Department of Pathology and LaboratoryMedicine. CPT CODES: ?49397, 29617ABG CODES: ?Z11.9 Reference Number: [id number] ? [facility] ? [address], [place] [address] ?Email: [email or web address] (test code = 8598777) Clinical History Z11.9 Encounter for (test code = screening for infectious 0125900) and parasitic diseases, unspecified Comments (test code = 1750868) Frozen Interpretation (test code = 5891547) CTNG (test code = Chlamydia: Chlamydia: 3153566) NegativeGonorrhoeae: GC: Negative Specimen ID (test code = 3900289) BodySite (test code Cervix/Endocervix = 6851666) SubSite (test code = 8002317) Special Procedure (test code = 4772056) Pieces (test code = 9025406) Descriptive (test code = 4971608) Size (test code = 4030866) Block (test code = 2669586) Slide (test code = 3076223) Saved (test code = 9648816) Gross Description . (test code = 2609084) Initials (test code = 6839011) Microscopic Description (test code = 5447351) Diagnosis Description (test code = 6681650) Special Requests GC/Chlamydia (test code = 3074126) Stain (test code = 4312355) CPT Code (test code 11271;12246 = 3606562) ICD Code (test code Z11.9 = 3154964) Specimen Adequacy (test code = 2589027) Hormonal Evaluation (test code = 0290747) Cytotech Diagnosis (test code = 2606798) Recommendation (test code = 7964213) PAP Comments (test code = 6446248) General Categorization (test code = 4125426) Preliminary Diagnosis (test code = 0936335) [facility] [id number] 09:00:00 Test Item Value Reference Range Interpretation Comments GLUCOSE (test code 91 mg/dL 65-99 ? = 2345-7) Fasting referen ce interval UREA NITROGEN 8 mg/dL 7-25 (BUN) (test code = 3094-0) CREATININE (test 0.71 mg/dL 0.50-1.10 code = 2160-0) eGFR NON- See_Comment [Automated SWEDISH (test message] The code = 08208-5) system which generated this result transmitted reference range : > OR = 60 mL/min/1.73m2. The reference range was not used to interpr et this result as normal/abnormal . eGFR See_Comment [Automated SWEDISH (test message] The code = 15538-5) system which generated this result transmitted reference range : > OR = 60 mL/min/1.73m2. The reference range was not used to interpr et this result as normal/abnormal . BUN/CREATININE NOT APPLICABLE See_Comment [Automated RATIO (test code = message] The 3097-3) system which generated this result transmitted reference range : 6 - 22 (calc). The reference range was not used to interpr et this result as normal/abnormal . SODIUM (test code 135 mmol/L 135-146 = 2951-2) POTASSIUM (test 3.6 mmol/L 3.5-5.3 code = 2823-3) CHLORIDE (test 102 mmol/L 98-110 code = 2075-0) CARBON DIOXIDE 25 mmol/L 20-32 (test code = 2027-9) CALCIUM (test code 9.3 mg/dL 8.6-10.2 = 14099-4) PROTEIN, TOTAL 6.9 g/dL 6.1-8.1 (test code = 2885-2) ALBUMIN (test code 4.6 g/dL 3.6-5.1 = 1751-7) GLOBULIN (test See_Comment [Automated code = 77576-2) message] The system which generated this result transmitted reference range : 1.9 - 3.7 g/dL (calc). The reference range was not used to interpret this result as normal/abnormal . ALBUMIN/GLOBULIN See_Comment [Automated RATIO (test code = message] The 1759-0) system which generated this result transmitted reference range : 1.0 - 2.5 (calc ). The reference range was not used to interpr et this result as normal/abnormal . BILIRUBIN, TOTAL 0.9 mg/dL 0.2-1.2 (test code = 1974-2) ALKALINE 53 U/L 31-125 PHOSPHATASE (test code = 6768-6) AST (test code = 14 U/L 10-30 1920-8) ALT (test code = 11 U/L 6-29 REPORT 1742-6) COMMENT:FASTING :Y ES RAC (test code = Performing RAC) Organization Information: ? ?Site ID: [facility] ? ?Name: [facility] ? ?Address: [address] [place] [phone] ? ?Director: DIPTI HUIZAR MD OR [facility] [id number] 09:00:00 Test Item Value Reference Range Interpretation Comments CHOLESTEROL, TOTAL 126 mg/dL <200 (test code = 2092-3) HDL CHOLESTEROL 44 mg/dL See_Comment L [Automated (test code = 2084-9) message ] The system which generated this result transmitted reference range : > OR = 50. The reference range was not used to interpret this result as normal/abnormal . TRIGLYCERIDES (test 96 mg/dL <150 code = 2571-8) LDL-CHOLESTEROL mg/dL (calc) Reference ra nge: (test code = <100 Desirable 42466-7) range <100 mg/d L for primary prevention; ?<7 0 mg/dL for patients with C HD or diabetic patients with > or = 2 CHD risk factors. LDL-C is now calculated using the Fitz-Leonard calculation, which is a validated novel method providin g better accuracy than the Friedewald equation in the estimation of LDL-C. Fitz S S et al. PAU. 2013;310(19): 2527-7864 (http://educati on .[employer] .com/faq/NUB347 ) CHOL/HDLC RATIO See_Comment [Automated (test code = 9830-1) message ] The system which generated this result transmitted reference range : <5.0 (calc). Th e reference range was not used to interpret this result as normal/abnormal . NON HDL CHOLESTEROL See_Comment For fallon ents with (test code = diabetes plus 1 91609-9) major ASCVD ris k factor, treatin g to a non-HDL-C goal of <100 mg/dL (LDL-C of <70 mg/dL) is considered a therapeutic option. [Automated message] The system which generated this result transmitted reference range : <130 mg/dL (calc). The reference range was not used to interpret this result as normal/abnormal . RAC (test code = Performing RAC) Organization Information: ? ?Site ID: [facility] ? ?Name: [facility] ? ?Address: [address] [place] [phone] ? ?Director: DIPTI HUIZAR MD Lab Interpretation Abnormal (test code = 53059-3) [facility] Notes Date/Time Note Provider Source 2023-06-17 Formatting of this note might be differe nt from the original. Babs Enciso RN [facility] 16:25:12-00:00 LMP 04/01/23. Pt reports that she began spotting about 3-4 days ago and it has progressively gotten darker and heavier. A few minutes ago, she had a gush of blood and fluid and passed about a quarter siz ed clot. She is changing her pad about 3 times a day now, but when she had the gush of blood, it bled through her clothes. She is having mild cramping. Pt advised to report to the er for heavy bleeding and cramping. Pt verbalizes understanding. Electronically signed by Babs Enciso RN at 4:30 PM CDT 2023-06-17 Formatting of this note might be differe nt from the original. Polly Dominguez [facility] 16:12:03-00:00 Pt called and states that sh e and bleeding heavily. She states that it is now dark red with clots. She is requesting to speak with a nurse for further assistance. Please advise. Verified call back number: [phone] 2023-06-14 Formatting of this note might be differe nt from the original. Sarah Ma [facility] 14:41:00-00:00 Spoke to PT. She believes he r LMP is approx 04/01/2023. Light pink blood when wipe. Not filling up panty liner. Denies intercourse. ER precautions given. Verbalized understanding. KAREN MA RN 06/14/2023 2:43 PM 2023-06-14 Formatting of this note might be differe nt from the original. Polly Dominguez [facility] 14:34:21-00:00 Pt called and states that to day she started experiencing light spotting and cramping. Pt doesn't know how far along she is in this . She doesn't know if she is needing to go to the ER or what t o do next. She is requesting to speak with a nurse. Please advise. Call back number: [phone] "
[2023-06-17 17:31] LABS: Hematocrit 39.3 % (36.0-45.0); Lymphocytes % 22.4 % (15.3-44.8); MPV 8.1 fL (7.6-11.3); Platelets 317 thou/uL (152-406); RBC Red Blood Cell Count 4.74 M/uL (3.86-4.86)
[2023-06-17 17:47] LABS: Potassium 3.5 mEq/L (3.5-5.1)
--- NOTE | 2023-06-17 18:03 | RAD REPORT ---
EXAM DESCRIPTION: US - Transvaginal OB - 06/17/2023 5:54 pm CLINICAL HISTORY: Abd cramping, ;Vaginal bleeding COMPARISON: <Comparisons> FINDINGS: Uterus is normal sized. Endometrial thickening of 14 mm noted. No IUP findings seen. The maternal adnexa and right ovary are within normal limits. Normal Doppler blood flow was demonstra ky to the right ovary. The left ovary is obscured by bowel gas. IMPRESSION: No IUP is confirmed. Endometrial thickening could indicate early . Recommend serial HCG levels and follow-up pelvic sonogram in 10-12 days.
--- NOTE | 2023-06-17 18:07 | ER ---
Nurse's Notes [facility] Name: Christianne Garcia Age: 28 yrs Sex: Female : 1995 Arrival Date: 06/17/2023 Time: 16:55 Bed 19 Private MD: Diagnosis: Threatened Presentation: 06/17 17:02 Chief complaint: Patient states: she has been having vaginal bleeding for approx 4 ap3 days, but it has gotten worse today. patient states her LMP 04/01/23. Coronavirus screen: At this time, the client does not indicate any symptoms associated with coronavirus-19. Ebola Screen: No symptoms or risks identified at this time. Initial Sepsis Screen: Does the patient meet any 2 criteria? No. Patient's initial sepsis screen is negative. Does the patient have a suspected source of infection? No. Patient's initial sepsis screen is negative. Risk Assessment: Do you want to hurt yourself or someone else? Patient reports no desire to harm self or others. Onset of symptoms was June 13, 2023. 17:02 Method Of Arrival: Ambulatory ap3 17:02 Acuity: ZEB 3 ap3 Triage Assessment: 17:04 General: Appears in no apparent distress. Behavior is calm, cooperative, appropriate ap3 for age. Pain: Complains of pain in suprapubic area. Neuro: Level of Consciousness is awake, alert, obeys commands, Oriented to person, place, time, situation. Cardiovascular: Patient's skin is warm and dry. Respiratory: Airway is patent Respiratory effort is even, unlabored, Respiratory pattern is regular, symmetrical. : Reports vaginal bleeding that is with clots. 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 - Social history:: Smoking status: Patient denies any tobacco usage or history of. Screenin:05 [facility] ED Fall Risk Assessment (Adult) History of falling in the last 3 months, ap3 including since admission No falls in past 3 months (0 pts). Abuse screen: Denies threats or abuse. Nutritional screening: No deficits noted. Tuberculosis screening: No symptoms or risk factors identified. Assessment: 17:07 Obstetrical Assessment: Patient reports abdominal cramping, and vaginal bleeding with ap3 clots. Vital Signs: 17:02 BP 162 / 89; Pulse 110; Resp 18; Temp 97.9; Pulse Ox 96% ; Weight 90.72 kg; Pain 2/10; ap3 17:02 Pain Scale: Adult ap3 ED Course: 16:56 Patient arrived in ED. rg4 16:57 Shayy Coley FNP-C is [facility]. kb 16:57 Gloria Fisher MD is Attending Physician. kb 17:04 Triage completed. ap3 17:05 Arm band placed on right wrist. ap3 17:05 Patient has correct armband on for positive identification. Bed in low position. Call ap3 light in reach. Pulse ox on. NIBP on. 17:07 Blanca Fall, RN is Primary Nurse. ap3 17:09 Inserted saline lock: 20 gauge in right antecubital area, using aseptic technique. tm3 17:15 Initial lab(s) drawn, by me, sent to lab. tm3 17:56 US Transvaginal Ob In Process Unspecified. EDMS 18:26 Provided Education on: discharge instruction. ap3 18:26 No provider procedures requiring assistance completed. ap3 18:29 IV discontinued, intact, bleeding controlled, No redness/swelling at site. Pressure ap3 dressing applied. Administered Medications: No medications were administered Medication: 18:26 VIS not applicable for this client. ap3 Outcome: 18:06 Discharge ordered by . kb 18:29 Discharged to home ambulatory. ap3 18:29 Condition: good 18:29 Discharge instructions given to patient, Instructed on discharge instructions, follow up and referral plans. Demonstrated understanding of instructions, follow-up care. 18:29 Patient left the ED. ap3 Signatures: Dispatcher [employer] EDMS Shayy Coley FNP-C FNP-Bryce Parker tm3 Cheli Lockwood rg4 Blanca Fall, RN RN ap3
--- NOTE | 2023-06-17 18:07 | EDPHYS ---
Physician Documentation [facility] Name: Christianne Garcia Age: 28 yrs Sex: Female : 1995 Arrival Date: 06/17/2023 Time: 16:55 Bed 19 Private MD: ED Physician Gloria Fisher HPI: 06/17 17:06 This 28 yrs old Female presents to ER via Ambulatory with complaints of kb Vaginal Bleeding, + Preg <12wks. 17:06 The patient presents to the emergency department with abdominal pain, vaginal bleeding. kb The estimated gestational age is 11 weeks. course: care: at a clinic. Previous pregnancies: in previous pregnancies patient has had. Associated signs and symptoms: Pertinent positives: abdominal pain, vaginal bleeding. The patient has not experienced similar symptoms in the past. The patient has not recently seen a physician. Pt reports she has been spotting for 4 days, then had two gushes of blood today after passing a clot each time. Reports slight cramps that just started. . 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 - Social history:: Smoking status: Patient denies any tobacco usage or history of. ROS: 17:06 Constitutional: Negative for fever, chills, and weight loss. kb 17:06 Abdomen/GI: Positive for abdominal cramps. 17:06 : Positive for vaginal bleeding. 17:06 All other systems are negative. Exam: 17:06 Constitutional: This is a well developed, well nourished patient who is awake, alert, kb and in no acute distress. Head/Face: Normocephalic, atraumatic. ENT: Moist Mucous membranes Cardiovascular: Regular rate and rhythm with a normal S1 and S2. No gallops, murmurs, or rubs. No pulse deficits. Respiratory: Respirations even and unlabored. No increased work of breathing. Talking in full sentences Abdomen/GI: Soft, non-tender. No distention Skin: Warm, dry with normal turgor. Normal color. MS/ Extremity: Pulses equal, no cyanosis. Neurovascular intact. Full, normal range of motion. Neuro: Awake and alert, GCS 15, oriented to person, place, time, and situation. Moves all extremities. Normal gait. Vital Signs: 17:02 BP 162 / 89; Pulse 110; Resp 18; Temp 97.9; Pulse Ox 96% ; Weight 90.72 kg; Pain 2/10; ap3 17:02 Pain Scale: Adult ap3 MDM: 16:57 Patient medically screened. kb 17:09 Differential diagnosis: threatened Ab, inevitable Ab, complete Ab, retained Ab, missed kb Ab. Data reviewed: vital signs, nurses notes. 18:05 Counseling: I had a detailed discussion with the patient and/or guardian regarding: the kb historical points, exam findings, and any diagnostic results supporting the discharge/admit diagnosis, lab results, radiology results, the need for outpatient follow up, an OB/Gyne specialist, to return to the emergency department if symptoms worsen or persist or if there are any questions or concerns that arise at home. 06/17 16:58 Order name: Abo/rh Typing; Complete Time: 17:57 kb 06/17 16:58 Order name: Basic Metabolic Panel; Complete Time: 17:47 kb 06/17 16:58 Order name: CBC with Diff; Complete Time: 17:46 kb 06/17 16:58 Order name: Quantitative Hcg; Complete Time: 17:47 kb 06/17 16:58 Order name: US Transvaginal Ob; Complete Time: 18:05 kb 06/17 16:58 Order name: IV Saline Lock; Complete Time: 17:11 kb 06/17 16:58 Order name: Labs collected and sent; Complete Time: 17:17 kb 06/17 16:58 Order name: NPO; Complete Time: 17:02 kb Administered Medications: No medications were administered Disposition Summary: 06/17/23 18:06 Discharge Ordered Location: Home kb Condition: Stable kb Diagnosis - Threatened kb Followup: kb - With: Emergency Department - When: As needed - Reason: Worsening of condition Followup: kb - With: Private Physician - When: 2 - 3 days - Reason: Recheck today's complaints, Continuance of care, Re-evaluation by your physician Discharge Instructions: - Discharge Summary Sheet kb - Threatened Miscarriage, [id number] kb - Vaginal Bleeding During , First Trimester, [id number] kb Forms: - Medication Reconciliation Form kb - Thank You Letter kb - Antibiotic Education kb - Prescription Opioid Use kb - Patient Portal Instructions kb - Leadership Thank You Letter kb Signatures: Dispatcher [employer] Shayy Nj, Blanca Moralez RN RN ap3
[2023-06-17 18:58] VITALS: BP 162/89; TEMP 97.9; O2SAT 96
== END 2023-06-17 18:29 | disposition home or self-care (01) ==
LOC: ER 16:55
DX: O20.0 Threatened abortion (principal)
CPT/HCPCS: 36415; 76817; 80048; 84702; 85025; 86900; 86901; 99284